=== PATIENT | female | born 1930 | race Caucasian/White ===

== ENCOUNTER 2016-03-12 14:40 | Inpatient (IN) | payer MEDICARE ==
[~2016-03-12] VITALS: Ht 170.2 cm; Wt 55.1 kg
[~2016-03-12 14:40] MED LIST: ACHD5005 PO; CHOL10007 PO; CPR500T PO; HYDR1CAP3; IBUP-15; LOSA50TA36 PO; [UNRECOGNIZED DRUG - CODE] OP; [UNRECOGNIZED DRUG - SUPPLY]
--- OUTSIDE RECORDS SUMMARY | 2016-03-12 14:46 | XMS REPORT | Continuity of Care Document ---
Author Author [facility] Organization [facility] Address Unknown Phone Unavailable Care Team Providers Care Technology Sales Consultant Name Role Phone ALECIA DE OLIVEIRA MD PCP Insurance Providers Payer Name Policy Number Subscriber Name Relationship [employer] Gold Choice [id number] Randy Solis 20 Self / Same As Patient Advance Directives Directive Response Recorded Date/Time Advance Directives No 09/22/13 12:28am Organ Donor Yes 09/22/13 12:28am Resuscitation Status Full Code 09/22/13 12:28am Resuscitation Status Full Code 09/21/13 11:01pm Chief Complaint and Reason for Visit Chief Complaint SMALL BOWEL OBSTRUCTION Reason for Visit Bowel obstruction Inguinal hernia Bowel obstruction Problems Medical Problems Problem Onset Date Status Bowel obstruction Unknown Active Inguinal hernia Unknown Active Bowel obstruction Unknown Active Medications Medication Dose Route Sig Days/Qty Instructions Order Date Discontinued Date Status Hydrocodone Bit/Acetaminophen 04/23/09 04/24/09 Discontinued Ibuprofen 04/24/09 09/21/13 Discontinued [Toilet/Stool Riser] 1 Qty 10/01/13 Active Ciprofloxacin 500 Mg PO TWICE A DAY 20 Qty 10/01/13 Active Acetaminophen/Hydrocodone Bitart 1-2 Tab PO EVERY 4HRS PRN PAIN 35 Qty 10/01/13 Active Social History Social History Problem Response Recorded Date/Time Alcohol Use Denies Use 09/22/2013 3:37am Recreational Drug Use No 09/22/2013 3:37am Smoking Status Former Smoker 09/22/2013 12:28am Do you dip or chew tobacco? No 09/22/2013 12:28am Query Response Start Date Stop Date Smoking Status Former Smoker Hospital Discharge Instructions No hospital discharge instructions. Plan of Care Discharge Date 10/01/13 3:11pm Disposition 30 STILL A PATIENT Instructions/Education Provided Soft Diet (GEN) Forms Provided Follow-Up Appts. PDI Surgical Prescriptions See Medications Section Referrals (Unspecified) Functional Status Query Response Date Recorded Patient Orientation Person Place Time Situation October 01, 2013 3:33pm Comprehension Ability Understands Concepts September 22, 2013 2:10am Allergies, Adverse Reactions, Alerts Allergen Type Severity Reaction Status Last Updated NKANo Known Allergies Allergy Mild Active 04/23/09 Immunizations Name Given Type Date of Pneumonia Vaccine 06/26/09 Historical Tetanus Booster (TDap) More than 5yrs Historical Vital Signs Acute Vital Signs Vital Response Date/Time Temperature (Fahrenheit) 98.2 degrees F (97.6 - 99.5) Temperature (Calculated Celsius) 36.53195 degrees C (36.4 - 37.5) Temperature Source Temporal Pulse Rate (adult) 80 bpm (60 - 90) Respiratory Rate 16 bpm (12 - 24) O2 Sat by Pulse Oximetry 96 % (88 - 100) Blood Pressure 125/76 mm Hg Pain Pain Intensity 4 Height (Feet) 5 feet Height (Inches) 7.00 inches Height (Calculated Centimeters) 170.446289 cm Weight (Pounds) 155 pounds Weight (Calculated Grams) 60826.818 gm Weight (Calculated Kilograms) 70.698362 kilograms Calculated BMI 24.27 Results Test Source Date Result Interp. Ref. Range Comments Alanine Aminotransferase (ALT/SGPT) September 21, 2013 5:20pm 8 U/L N 0-55 Albumin September 21, 2013 5:20pm 4.1 G/DL N 3.2-4.5 Alkaline Phosphatase September 21, 2013 5:20pm 91 U/L N 40-136 Amylase Level February 05, 2012 10:27pm 99 U/L N 25-115 Aspartate Amino Transf (AST/SGOT) September 21, 2013 5:20pm 21 U/L N 5-34 B-Type Natriuretic Peptide March 17, 2012 12:50pm 149.0 PG/ML H 5.0- 100.0 BUN/Creatinine Ratio September 23, 2013 5:40am 17 - Band Neutrophils September 23, 2013 5:40am 4 % - Basophils # (Auto) September 23, 2013 5:40am 0.0 10^3/uL N 0.0-0.1 Basophils % (Manual) September 23, 2013 5:40am 0 % - Basophils (%) (Auto) September 23, 2013 5:40am 0 % N 0-10 Blood Urea Nitrogen September 23, 2013 5:40am 13 MG/DL N 7-18 Calcium Level September 23, 2013 5:40am 9.0 MG/DL N 8.5-10.1 Carbon Dioxide Level September 23, 2013 5:40am 25 MMOL/L N 21-32 Chloride Level September 23, 2013 5:40am 108 MMOL/L H 98-107 Creatinine September 23, 2013 5:40am 0.77 MG/DL N 0.60-1.30 D-Dimer March 17, 2012 12:50pm 0.76 UG/ML H 0.00-0.49 Eosinophils # (Auto) September 23, 2013 5:40am 0.0 10^3/uL N 0.0-0.3 Eosinophils % (Manual) September 23, 2013 5:40am 0 % - Eosinophils (%) (Auto) September 23, 2013 5:40am 0 % N 0-10 Erythrocyte Sedimentation Rate March 17, 2012 12:50pm 10 MM/HR N 0-30 Folate December 01, 2009 8:07am 19.5 NG/ML - Glucose Level September 23, 2013 5:40am 112 MG/DL H 70-105 Hematocrit September 23, 2013 5:40am 39 % N 35-52 Hemoglobin September 23, 2013 5:40am 12.9 G/DL N 11.5-16.0 Hemoglobin A1c December 01, 2009 8:07am 5.8 % N 4.8-6.0 Lipase September 21, 2013 5:20pm 11 U/L N 8-78 Lymphocytes # (Auto) September 23, 2013 5:40am 1.1 X 10^3 N 1.0-4.0 Lymphocytes % (Manual) September 23, 2013 5:40am 7 % - Lymphocytes (%) (Auto) September 23, 2013 5:40am 11 % L 12-44 Magnesium Level April 28, 2009 6:30am 2.0 MG/DL N 1.8-2.4 Mean Corpuscular Hemoglobin September 23, 2013 5:40am 29 PG N 25-34 Mean Corpuscular Hemoglobin Concent September 23, 2013 5:40am 33 G/DL N 32- 36 Mean Corpuscular Volume September 23, 2013 5:40am 88 FL N 80-99 Mean Platelet Volume September 23, 2013 5:40am 10.3 FL N 7.4-10.4 Monocytes # (Auto) September 23, 2013 5:40am 0.7 X 10^3 N 0.0-1.0 Monocytes % (Manual) September 23, 2013 5:40am 7 % - Monocytes (%) (Auto) September 23, 2013 5:40am 8 % N 0-12 Myoglobin March 17, 2012 12:50pm 28 UG/L N 10-92 RUN OFF CMP DRAWN @ 1250 Neutrophils # (Auto) September 23, 2013 5:40am 7.8 X 10^3 N 1.8-7.8 Neutrophils % (Manual) September 23, 2013 5:40am 82 % - Neutrophils (%) (Auto) September 23, 2013 5:40am 81 % H 42-75 Platelet Count September 23, 2013 5:40am 193 10^3/uL N 130-400 Potassium Level September 23, 2013 5:40am 4.0 MMOL/L N 3.6-5.0 Prothrombin Time September 21, 2013 5:20pm 13.7 SEC N 12.2-14.7 Red Blood Count September 23, 2013 5:40am 4.41 10^6/uL N 4.35-5.85 Red Cell Distribution Width September 23, 2013 5:40am 13.4 % N 10.0-14.5 Sodium Level September 23, 2013 5:40am 140 MMOL/L N 135-145 Thyroid Stimulating Hormone (TSH) March 05, 2006 1:00pm 1.17 UIU/ML N 0.34-5.60 PT IN MAIN LAB Total Bilirubin September 21, 2013 5:20pm 0.6 MG/DL N 0.1-1.0 Total Creatine Kinase March 17, 2012 12:50pm 79 U/L N 1-159 RUN OFF CMP DRAWN @ 1250 Total Protein September 21, 2013 5:20pm 8.1 G/DL N 6.4-8.2 Troponin I March 17, 2012 12:50pm < 0.10 NG/ML 0.00-0.10 RUN OFF CMP DRAWN @ 1250 Urine Bacteria September 22, 2013 8:50am NEGATIVE /HPF - Has specimen been collected/obtained? YSpecimen Description CLEAN CATCH Urine Bilirubin September 22, 2013 8:50am NEGATIVE - Has specimen been collected/obtained? YSpecimen Description CLEAN CATCH Urine Casts September 22, 2013 8:50am NONE /LPF - Has specimen been collected/obtained? YSpecimen Description CLEAN CATCH Urine Clarity September 22, 2013 8:50am CLOUDY H - Has specimen been collected/obtained? YSpecimen Description CLEAN CATCH Urine Color September 22, 2013 8:50am YELLOW - Has specimen been collected /obtained? YSpecimen Description CLEAN CATCH Urine Crystals September 22, 2013 8:50am NONE /LPF - Has specimen been collected/obtained? YSpecimen Description CLEAN CATCH Urine Culture Indicated September 22, 2013 8:50am YES - Has specimen been collected/obtained? YSpecimen Description CLEAN CATCH Urine Glucose (UA) September 22, 2013 8:50am NEGATIVE - Has specimen been collected/obtained? YSpecimen Description CLEAN CATCH Urine Ketones September 22, 2013 8:50am NEGATIVE - Has specimen been collected/obtained? YSpecimen Description CLEAN CATCH Urine Leukocyte Esterase September 22, 2013 8:50am 3+ H - Has specimen been collected/obtained? YSpecimen Description CLEAN CATCH Urine Mucus September 22, 2013 8:50am NEGATIVE /LPF - Has specimen been collected/obtained? YSpecimen Description CLEAN CATCH Urine Nitrite September 22, 2013 8:50am NEGATIVE - Has specimen been collected/obtained? YSpecimen Description CLEAN CATCH Urine Protein September 22, 2013 8:50am 2+ H - Has specimen been collected/ obtained? YSpecimen Description CLEAN CATCH Urine RBC September 22, 2013 8:50am TNTC /HPF H - Has specimen been collected/obtained? YSpecimen Description CLEAN CATCH Urine Specific [place] September 22, 2013 8:50am 1.010 L - Has specimen been collected/obtained? YSpecimen Description CLEAN CATCH Urine Squamous Epithelial Cells September 22, 2013 8:50am 0-2 /HPF - Has specimen been collected/obtained? YSpecimen Description CLEAN CATCH Urine Urobilinogen September 22, 2013 8:50am NORMAL MG/DL - Has specimen been collected/obtained? YSpecimen Description CLEAN CATCH Urine WBC September 22, 2013 8:50am 5-10 /HPF H - Has specimen been collected/obtained? YSpecimen Description CLEAN CATCH Urine pH September 22, 2013 8:50am 6 - Has specimen been collected/ obtained? YSpecimen Description CLEAN CATCH Vitamin B12 Level December 01, 2009 8:07am 467 PG/ML - White Blood Count September 23, 2013 5:40am 9.7 10^3/uL N 4.3-11.0 Estimat Glomerular Filtration Rate September 23, 2013 5:40am > 60 - GFR INTERPRETIVE DATA UNITS FOR ESTIMATED GFR (eGFR): mL/min/1.73 M2 REFERENCE RANGE FOR ESTIMATED GFR (eGFR) eGFR NORMAL eGFR >60 MODERATELY DECREASED eGFR 30-59 SEVERLY DECREASED eGFR 15-29 KIDNEY FAILURE <15 (OR DIALYSIS) Blood Morphology Comment September 23, 2013 5:40am NORMAL - Urine RBC (Auto) September 22, 2013 8:50am 5+ H - Has specimen been collected/obtained? YSpecimen Description CLEAN CATCH INR Comment September 21, 2013 5:20pm 1.1 N 0.8-1.4 INTERPRETIVE DATASUGGESTED THERAPEUTIC RANGE FOR INR'S: VENOUS THROMBOSIS, PULMONARY EMBOLISM, OR PREVENTION OF SYSTEMIC EMBOLISM (EG. IN ATRIAL FIBRILLATION): 2.0 - 3.0 MECHANICAL PROSTHETIC HEART VALVES: 2.5 - 3.5* *NOTE: INR'S UP TO 4.5 MAY BE NECESSARY IN SELECTED GROUPS OF HIGH RISK PATIENTS. [employer] CONSENSUS CONFERENCE ON ANTITHROMBOTIC THERAPY (2000). Fungal Culture Tongue November 30, 2009 12:20pm Jennifer Parapsilosis Urine Culture Urine-Clean Catch September 22, 2013 8:50am NO GROWTH Procedures Procedure Status Date Provider(s) Laparoscopic repair of inguinal hernia completed 09/21/13 HUEY CHOUDHURY MD Tracing only of electrocardiogram completed 09/21/13 LISA ADAME APRN Color Doppler echocardiography completed 09/25/13 ALECIA DE OLIVEIRA MD Encounters Encounter Location Date/Time Discharged Inpatient [facility] 09/21/13 6:51pm Recent Diagnosis Bowel obstruction Inguinal hernia Bowel obstruction
[2016-03-12 14:56] LABS: BASOPHILS % (AUTO) 0 % (0-10); EOSINOPHILS % (AUTO) 0 % (0-10); LYMPHOCYTES # (AUTO) 0.4 X 10^3 (1.0-4.0); LYMPHOCYTES % (AUTO) 2 % (12-44); MEAN CORPUSCULAR HEMOGLOBIN 29 PG (25-34); MEAN CORPUSCULAR HGB CONC 33 G/DL (32-36); MEAN CORPUSCULAR VOLUME 87 FL (80-99); MEAN PLATELET VOLUME 10.2 FL (7.4-10.4); MONOCYTES # (AUTO) 0.7 X 10^3 (0.0-1.0); MONOCYTES % (AUTO) 4 % (0-12); NEUTROPHILS # (AUTO) 16.4 X 10^3 (1.8-7.8); NEUTROPHILS % (AUTO) 94 % (42-75); PLATELET COUNT 231 10^3/uL (130-400); RED BLOOD COUNT 4.16 10^6/uL (4.35-5.85); RED CELL DISTRIBUTION WIDTH 12.6 % (10.0-14.5); WHITE BLOOD COUNT 17.5 10^3/uL (4.3-11.0)
[2016-03-12 15:08] LABS: INR 1.2 (0.8-1.4); PROTHROMBIN TIME PATIENT 15.1 SEC (12.2-14.7)
[2016-03-12 15:17] LABS: ALANINE AMINOTRANSFERASE 32 U/L (0-55); ALBUMIN 3.8 G/DL (3.2-4.5); ANION GAP 9 MMOL/L (5-14); ASPARTATE AMINO TRANSFERASE 43 U/L (5-34); BILIRUBIN,TOTAL 0.5 MG/DL (0.1-1.0); BLOOD UREA NITROGEN 21 MG/DL (7-18); BUN/CREATININE RATIO 28; CALCIUM 9.7 MG/DL (8.5-10.1); CARBON DIOXIDE 19 MMOL/L (21-32); CHLORIDE 107 MMOL/L (98-107); CREATININE SERUM 0.76 MG/DL (0.60-1.30); GFR ESTIMATED > 60; GLUCOSE 170 MG/DL (70-105); POTASSIUM 4.2 MMOL/L (3.6-5.0); SODIUM 135 MMOL/L (135-145); TOTAL PROTEIN 7.1 G/DL (6.4-8.2)
[2016-03-12] MEDS ORDERED: ONDANSETRON 4 MG/2 ML (SDV) Z0FRAN IVP ONE ×2 (15:30→17:00)
[2016-03-12] MEDS ORDERED: morphine INJ 10 MG/ML 1ML (SYR OR VIAL) ONE (15:31)
--- NOTE | 2016-03-12 15:33 | Diagnostic Imaging Report ---
INDICATION: Fell on porch, left hand pain. FINDINGS: Three views of the left hand demonstrate no fracture or dislocation. Osteopenia is present. Moderate to severe degenerative changes are present in the second, third and fourth distal interphalangeal joints with subluxations of the second and third digits. IMPRESSION: There are degenerative changes of the left hand with osteopenia. No acute findings are seen. Dictated by: Dictated on workstation # [id number]
--- NOTE | 2016-03-12 15:33 | Diagnostic Imaging Report ---
INDICATION: Fell on porch, left hip pain. FINDINGS: An AP view of the pelvis demonstrates a comminuted intertrochanteric fracture of the left hip. Fractures of the left superior and inferior pubic rami are present. IMPRESSION: There is a comminuted intra-articular fracture of the left femur with fractures of the left superior and inferior pubic rami. Dictated by: Dictated on workstation # [id number]
--- NOTE | 2016-03-12 15:33 | Diagnostic Imaging Report ---
INDICATION: Fell outside on porch, hip fracture. FINDINGS: A frontal view of the chest demonstrates the heart size to be at the upper limits of normal with normal vascularity. The lungs are clear. No fractures are seen. There is calcification of the aorta. IMPRESSION: The heart size is at the upper limits of normal with no acute findings. Dictated by: Dictated on workstation # [id number]
--- NOTE | 2016-03-12 15:40 | Diagnostic Imaging Report ---
PROCEDURE: CT head and CT cervical spine without contrast. TECHNIQUE: Multiple contiguous axial images were obtained through the brain and cervical spine without the use of intravenous contrast. Sagittal and coronal reformations through the cervical spine were then performed. INDICATION: Fall. FINDINGS: CT head: There is no intracranial hemorrhage, edema or mass effect. The brain parenchyma and ugarte-white matter differentiation is preserved. There are periventricular and deep white matter hypodensities compatible with chronic microvascular ischemic changes. No hydrocephalus. No extra-axial fluid collection is seen. The calvarium, the paranasal sinuses and orbits visualized portions appear grossly unremarkable. CT cervical spine: There is mild anterior translation of C4 over C5 and of C5 over C6. The anterior arch of C1 appears to be fused with the dens. There are preserved vertebral body heights. There is moderate disc height loss at C4/C5 and C5/C6 levels. The anterior masses of C1 and C2 appear well aligned. There is normal alignment at the atlanto-occipital joints bilaterally. The facet joints demonstrate satisfactory alignment. There is osseous fusion involving C2/C3 facet joints bilaterally and C6/C7 and C7/T1 facet joints are fused on both sides. Prominent facet arthropathy is seen at all levels. No fracture seen. IMPRESSION: 1. CT head: No intracranial hemorrhage. White matter chronic ischemic changes seen. 2. 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 The anterior arch of C1 is also fused with the dens. No acute fracture is identified. Alignment abnormalities described are likely secondary to degenerative changes. Dictated by: Dictated on workstation # [id number]
[2016-03-12] MEDS ORDERED: morphine INJ 10 MG/ML 1ML (SYR OR VIAL) IVP ONE ×2 (15:45→16:15)
--- NOTE | 2016-03-12 15:46 | Diagnostic Imaging Report ---
Frontal and lateral views of the left femur. INDICATION: Fall. FINDINGS: There is a mildly displaced intertrochanteric fracture. There is slight impaction of the bone fragments and superior displacement resulting in lateral flexion at the hip joint. There is no primary joint injury-related abnormality. There are mild degenerative changes in the left hip. IMPRESSION: Slightly displaced and impacted left intertrochanteric fracture. Dictated by: Dictated on workstation # [id number]
--- NOTE | 2016-03-12 16:06 | ED Hip Pain/Injury ---
General Chief Complaint: Hip/Pelvic Problems Stated Complaint: L HIP PAIN, FALL Nursing Triage Note: L HIP, L HAND PAIN S/P FALL WHILE SWEEPING Source: patient, family, EMS Exam Limitations: no limitations History of Present Illness Time seen by provider: 14:41 Initial Comments This pleasant 85-year-old woman presents to the emergency room via EMS from home where she fell while sweeping leaves off the porch. She is uncertain if she injured her head but does have significant pain in the left hip and thigh. There was no loss of consciousness. She also has a large area of swelling and ecchymosis on the left hand. She denies any blood thinning medications other than a baby aspirin daily. She has a relatively unremarkable health history. She is alert and oriented on arrival. She has not required any pain medications at this time. There is obvious deformity below the left hip. Sensation and pedal pulses are intact distally. Allergies and Home Medications Allergies Coded Allergies: NKANo Known Allergies (Unverified Allergy, Mild, 04/23/09) fentanyl (Verified Adverse Reaction, Mild, 03/12/16) Agitation Home Medications Cholecalciferol (Vitamin D3) 1,000 Unit Capsule 1,000 UNIT PO DAILY (Reported) Tetrahydrozoline HCl 15 Ml Drops 15 ML OP (Reported) Constitutional: no symptoms reported EENTM: no symptoms reported Respiratory: no symptoms reported Cardiovascular: no symptoms reported Gastrointestinal: no symptoms reported Genitourinary: no symptoms reported : No Musculoskeletal: see HPI Skin: see HPI Psychiatric/Neurological: No Symptoms Reported Past Hfjzbyb-Ljaqyf-Ehvfmj Hx Patient Social History Alcohol Use: Denies Use Recreational Drug Use: No Smoking Status: Never a Smoker Recent Foreign Travel: No Contact w/Someone Who Travel: No Recent Infectious Disease Expo: No Recent Hopitalizations: Yes (BOWEL SURGERY) Physical Abuse Screen: No Sexual Abuse: No Immunizations Up To Date Tetanus Booster (TDap): More than 5yrs Date of Pneumonia Vaccine: June 26, 2009 Seasonal Allergies Seasonal Allergies: No Surgeries HX Surgeries: Yes (hernia repair) Surgeries: Abdominal, Bowel Surgery Respiratory Hx Respiratory Disorders: No Cardiovascular Hx Cardiac Disorders: No Neurological Hx Neurological Disorders: Yes Neurological Disorders: TIA Reproductive System Hx Reproductive Disorders: No Genitourinary Hx Genitourinary Disorders: No Gastrointestinal Hx Gastrointestinal Disorders: Yes Gastrointestinal Disorders: Abdominal Hernia, Obstructive Bowel Musculoskeletal Hx Musculoskeletal Disorders: Yes Musculoskeletal Disorders: Arthritis, Chronic Back Pain Endocrine Hx Endocrine Disorders: No HEENT HX ENT Disorders: No Cancer Hx Cancer: No Psychosocial Hx Psychiatric Problems: No Integumentary HX Skin/Integumentary Disorder: No Blood Transfusions Hx Blood Disorders: No Family Medical History Significant Family History: No Pertinent Family Hx Family Medial History: Cancer 19 MOTHER (breast) Family history: Arthritis G8 SISTER Family history: Breast disease 19 MOTHER Hearing loss Myocardial infarction 19 FATHER Physical Exam Vital Signs Vital Sign - Last 12Hours 03/12/16 14:42 Temp 97.6 Pulse 83 Resp 18 B/P 175/80 Pulse Ox 98 Capillary Refill : Less Than 3 Seconds General Appearance: No Apparent Distress WD/WN HEENT: PERRL/EOMI TMs Normal Normal ENT Inspection Pharynx Normal Neck: Full Range of Motion Normal Inspection Non Tender Supple Cardiovascular: Regular Rate, Rhythm No Edema No Murmur Normal Peripheral Pulses Respiratory: Lungs Clear Normal Breath Sounds No Accessory Muscle Use No Respiratory Distress Gastrointestinal: Non Tender Soft Extremity: Other (tenderness to palpation of the proximal left thigh. There is mild deformity in this location. 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1 MG/DL Carbon Dioxide Level 19 L 21-32 MMOL/L Chloride Level 107 98-107 MMOL/L Creatinine 0.76 0.60-1.30 MG/DL Eosinophils # (Auto) 0.0 0.0-0.3 10^3/uL Eosinophils % (Manual) 0 % Eosinophils (%) (Auto) 0 0-10 % Estimat Glomerular Filtration Rate > 60 Glucose Level 170 H 70-105 MG/DL Hematocrit 36 35-52 % Hemoglobin 12.0 11.5-16.0 G/DL INR Comment 1.2 0.8-1.4 Lymphocytes # (Auto) 0.4 L 1.0-4.0 X 10^3 Lymphocytes % (Manual) 3 % Lymphocytes (%) (Auto) 2 L 12-44 % Mean Corpuscular Hemoglobin 29 25-34 PG Mean Corpuscular Hemoglobin Concent 33 32-36 G/DL Mean Corpuscular Volume 87 80-99 FL Mean Platelet Volume 10.2 7.4-10.4 FL Monocytes # (Auto) 0.7 0.0-1.0 X 10^3 Monocytes % (Manual) 0 % Monocytes (%) (Auto) 4 0-12 % Neutrophils # (Auto) 16.4 H 1.8-7.8 X 10^3 Neutrophils % (Manual) 94 % Neutrophils (%) (Auto) 94 H 42-75 % Platelet Count 231 130-400 10^3/uL Poikilocytosis SLIGHT Potassium Level 4.2 3.6-5.0 MMOL/L Prothrombin Time 15.1 H 12.2-14.7 SEC Red Blood Count 4.16 L 4.35-5.85 10^6/uL Red Cell Distribution Width 12.6 10.0-14.5 % Sodium Level 135 135-145 MMOL/L Total Bilirubin 0.5 0.1-1.0 MG/DL Total Protein 7.1 6.4-8.2 G/DL White Blood Count 17.5 H 4.3-11.0 10^3/uL My Orders Orders-MANOHAR FARIAS MD Cbc With Automated Diff (03/12/16 14:49) Comprehensive Metabolic Panel (03/12/16 14:49) Protime With Inr (03/12/16 14:49) Partial Thromboplastin Time (03/12/16 14:49) Ua Culture If Indicated (03/12/16 14:49) Saline Lock/Iv-Start (03/12/16 14:49) Chest 1 View, Ap/Pa Only (03/12/16 14:49) Femur, Left, 2 Views (03/12/16 14:49) Pelvis (03/12/16 14:49) Manual Differential (03/12/16 14:46) Ct Head/Cervical Spine Wo (03/12/16 14:59) Hand, Left, 3 Views (03/12/16 15:01) Ondansetron Injection (Zofran Injectio (03/12/16 15:30) Morphine Injection (Morphine Injection (03/12/16 15:45) Morphine Injection (Morphine Injection (03/12/16 15:31) Ekg Tracing (03/12/16 16:01) Morphine Injection (Morphine Injection (03/12/16 16:15) Tramadol Tablet (Ultram Tablet) (03/12/16 16:15) Ondansetron Injection (Zofran Injectio (03/12/16 17:00) Medications Given in ED Current Medications Medications Dose Ordered Sig/Gustavo Route Start Time Stop Time Status Last Admin Dose Admin Morphine Sulfate 1 mg ONCE ONCE IVP 03/12/16 15:45 03/12/16 15:46 DC 03/12/16 15:42 1 MG Morphine Sulfate 1 mg ONCE ONCE IVP 03/12/16 16:15 03/12/16 16:16 DC 03/12/16 16:28 1 MG Ondansetron HCl 4 mg ONCE ONCE IVP 03/12/16 15:30 03/12/16 15:31 DC 03/12/16 15:39 4 MG Tramadol HCl 50 mg ONCE ONCE PO 03/12/16 16:15 03/12/16 16:16 DC 03/12/16 16:28 50 MG Vital Signs/I&O Vital Sign - Last 12Hours 03/12/16 14:42 Temp 97.6 Pulse 83 Resp 18 B/P 175/80 Pulse Ox 98 Blood Pressure Mean: 111 Progress Note : Progress Note Patient was given a total of 2 mg of morphine for pain. Allergy profile was discussed with pharmacy, Dr. Chamberlain's office, and patient's family due to questions of narcotic allergies. Patient has some adverse reactions to narcotics, especially fentanyl, which sometimes cause mental status changes. There is no known true allergy to narcotics. Patient was also given Zofran for nausea. Case was discussed with Dr. Schroeder who tentatively plans to do surgery tomorrow. Dr. Chamberlain was consulted for primary care. ECG Initial ECG Impression Date: Mar 12, 2016 Initial ECG Impression Time: 16:19 Initial ECG Rhythm: Normal Sinus Comment Sinus rhythm with no ST elevation or depression. Incomplete right bundle branch block by automated read. Left ventricular hypertrophy by automated read. Diagnostic Imaging Diagonstic Imaging: Xray Plain Films/CT/US/NM/MRI: other (left femur) Comments Left femur x-ray viewed by me and report reviewed. See report below: NAME: RANDY LEE [facility] REC#: [id number] PT STATUS: REG ER : 1932 PHYSICIAN: MANOHAR FARIAS MD ADMIT DATE: 03/12/16/ER Signed Date of Exam:03/12/16 FEMUR, LEFT, 2 VIEWS Frontal and lateral views of the left femur. INDICATION: Fall. FINDINGS: There is a mildly displaced intertrochanteric fracture. There is slight impaction of the bone fragments and superior displacement resulting in lateral flexion at the hip joint. There is no primary joint injury-related abnormality. There are mild degenerative changes in the left hip. IMPRESSION: Slightly displaced and impacted left intertrochanteric fracture. Dictated by: Dictated on workstation # [id number] Dict: 03/12/16 1534 Trans: 03/12/16 1550 [id number] Interpreted by: MELANY ESPINO MD Electronically signed by: MELANY ESPINO MD 03/12/16 1553 Diagonstic Imaging: Xray Plain Films/CT/US/NM/MRI: hand Comments X-ray left hand viewed by me and report reviewed. See report below: NAME: RANDY LEE [facility] REC#: [id number] PT STATUS: REG ER : 1932 PHYSICIAN: MANOHAR FARIAS MD ADMIT DATE: 03/12/16/ER Signed Date of Exam:03/12/16 HAND, LEFT, 3 VIEWS INDICATION: Fell on porch, left hand pain. FINDINGS: Three views of the left hand demonstrate no fracture or dislocation. Osteopenia is present. Moderate to severe degenerative changes are present in the second, third and fourth distal interphalangeal joints with subluxations of the second and third digits. IMPRESSION: There are degenerative changes of the left hand with osteopenia. No acute findings are seen. Dictated by: Dictated on workstation # [id number] Dict: 03/12/16 1529 Trans: 03/12/16 1624 [facility] [id number] Interpreted by: DELANO CASH MD Electronically signed by: DELANO CASH MD 03/12/16 1626 Diagonstic Imaging: CT Plain Films/CT/US/NM/MRI: c-spine, head Comments CT head and cervical spine viewed by me and report reviewed. See report below: NAME: RANDY LEE [facility] REC#: [id number] PT STATUS: REG ER : 1932 PHYSICIAN: MANOHAR FARIAS MD ADMIT DATE: 03/12/16/ER Signed Date of Exam:03/12/16 CT HEAD/CERVICAL SPINE WO PROCEDURE: CT head and CT cervical spine without contrast. TECHNIQUE: Multiple contiguous axial images were obtained through the brain and cervical spine without the use of intravenous contrast. Sagittal and coronal reformations through the cervical spine were then performed. INDICATION: Fall. FINDINGS: CT head: There is no intracranial hemorrhage, edema or mass effect. The brain parenchyma and ugarte-white matter differentiation is preserved. There are periventricular and deep white matter hypodensities compatible with chronic microvascular ischemic changes. No hydrocephalus. No extra-axial fluid collection is seen. The calvarium, the paranasal sinuses and orbits visualized portions appear grossly unremarkable. CT cervical spine: There is mild anterior translation of C4 over C5 and of C5 over C6. The anterior arch of C1 appears to be fused with the dens. There are preserved vertebral body heights. There is moderate disc height loss at C4/C5 and C5/C6 levels. The anterior masses of C1 and C2 appear well aligned. There is normal alignment at the atlanto-occipital joints bilaterally. The facet joints demonstrate satisfactory alignment. There is osseous fusion involving C2/C3 facet joints bilaterally and C6/C7 and C7/T1 facet joints are fused on both sides. Prominent facet arthropathy is seen at all levels. No fracture seen. IMPRESSION: 1. CT head: No intracranial hemorrhage. White matter chronic ischemic changes seen. 2. 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 The anterior arch of C1 is also fused with the dens. No acute fracture is identified. Alignment abnormalities described are likely secondary to degenerative changes. Dictated by: Dictated on workstation # [id number] Dict: 03/12/16 1526 Trans: 03/12/16 1551 [facility] [id number] Interpreted by: MELANY ESPINO MD Electronically signed by: MELANY ESPINO MD 03/12/16 1554 Diagonstic Imaging: Xray Plain Films/CT/US/NM/MRI: chest Comments Chest x-ray viewed by me and report reviewed. See report below: NAME: RANDY LEE [facility] REC#: [id number] PT STATUS: REG ER : 1930 PHYSICIAN: MANOHAR FARIAS MD ADMIT DATE: 03/12/16/ER Signed Date of Exam:03/12/16 CHEST 1 VIEW, AP/PA ONLY INDICATION: Fell outside on porch, hip fracture. FINDINGS: A frontal view of the chest demonstrates the heart size to be at the upper limits of normal with normal vascularity. The lungs are clear. No fractures are seen. There is calcification of the aorta. IMPRESSION: The heart size is at the upper limits of normal with no acute findings. Dictated by: Dictated on workstation # [id number] Dict: 03/12/16 1528 Trans: 03/12/16 1624 [id number] Interpreted by: DELANO CASH MD Electronically signed by: DELANO CASH MD 03/12/16 1626 Diagonstic Imaging: Xray Plain Films/CT/US/NM/MRI: pelvis Comments Pelvis x-ray viewed by me and report reviewed. See report below: NAME: RANDY LEE [facility] REC#: [id number] PT STATUS: REG ER : 1930 PHYSICIAN: MANOHAR FARIAS MD ADMIT DATE: 03/12/16/ER Signed Date of Exam:03/12/16 PELVIS INDICATION: Fell on porch, left hip pain. FINDINGS: An AP view of the pelvis demonstrates a comminuted intertrochanteric fracture of the left hip. Fractures of the left superior and inferior pubic rami are present. IMPRESSION: There is a comminuted intra-articular fracture of the left femur with fractures of the left superior and inferior pubic rami. Dictated by: Dictated on workstation # [id number] Dict: 03/12/16 1530 Trans: 03/12/16 1624 [id number] Interpreted by: DELANO CASH MD Electronically signed by: DELANO CASH MD 03/12/16 1626 Departure Communication Time/Spoke to Admitting Phy: 15:[address] Schroeder Time/Spoke to Consulting Physi: 15:55 Communication/Consulting Dr. Chamberlain Impression Impression: Primary Impression: Closed intertrochanteric fracture of left hip Qualified Code: S72.142A - Displaced intertrochanteric fracture of left femur , initial encounter for closed fracture Additional Impressions: Fall on same level Qualified Code: W18.30XA - Fall on same level, unspecified, initial encounter Fracture of pelvis Qualified Code: S32.82XA - Multiple fractures of pelvis without disruption of pelvic ring, initial encounter for closed fracture Disposition: ADMITTED INPATIENT Condition: Improved Decision to Admit Reason: Admit from ER (Trauma) Decision to Admit/Date: Mar 12, 2016 Time/Decision to Admit Time: 15:40 Departure-Patient Inst. Referrals: MITCHELL CHAMBERLAIN MD (PCP/Family) Primary Care Physician MANOHAR FARIAS MD Mar 12, 2016 16:06
[2016-03-12 16:14] LABS: BAND NEUTROPHILS 3 %; BASOPHILS % (MANUAL) 0 %; EOSINOPHILS % (MANUAL) 0 %; LYMPHOCYTES % (MANUAL) 3 %; NEUTROPHILS % (MANUAL) 94 %; POIKILOCYTOSIS SLIGHT
[2016-03-12 17:40] VITALS: BP 179/89
[2016-03-12] MEDS ORDERED: NS IV 1000 ML 1,000 ML ONE (17:58)
[2016-03-12] MEDS ORDERED: fentaNYL INJECTION 100 MCG/2 ML AMP IVP PRN (18:15)
[2016-03-12] MEDS ORDERED: CATHETER FLUSH 10 ML SYR IV PRN (18:15)
[2016-03-12] MEDS: ONDANSETRON 4 MG/2 ML (SDV) Z0FRAN IV PRN (18:22)
[2016-03-12] MEDS ORDERED: morphine INJ 4 MG/ML 1 ML (VIAL/SYRINGE) IV PRN (18:30)
[2016-03-12] MEDS: NS IV 1000 ML 1,000 ML IV SCH (18:39)
[2016-03-12] MEDS ORDERED: CYCLOBENZAPRINE 10 MG (FLEXERIL) TAB PO PRN (18:45)
[2016-03-12] MEDS ORDERED: CYCLOBENZAPRINE 10 MG (FLEXERIL) TAB PO SCH (18:45)
[2016-03-12 18:49] LABS: BILIRUBIN,URINE NEGATIVE (NEGATIVE); KETONES,URINE 2+ (NEGATIVE); LEUKOCYTE ESTERASE ,URINE NEGATIVE (NEGATIVE); NITRITE,URINE NEGATIVE (NEGATIVE); PH,URINE 6 (5-9); PROTEIN,URINE 2+ (NEGATIVE); UROBILINOGEN,URINE NORMAL (NORMAL)
[2016-03-12 18:57] LABS: WBC,URINE RARE /HPF
[2016-03-12 19:20] VITALS: BP 167/75
--- NOTE | 2016-03-12 22:26 | History & Physicial ---
History of Present Illness History of Present Illness Reason for visit/HPI Fall 85 y/o white female fell earlier today injuring her left hip. She is awake, alert, mildly confused. Denies any other complaints of pain. Denies LOC. Date of Admission Mar 12, 2016 at 4:47 pm I consulted on this patient on 03/12/16 22:22 Attending Physician Jie Schroeder MD Admitting Physician Josselyn Chamberlain MD Consult Allergies and Home Medications Allergies Coded Allergies: NKANo Known Allergies (Unverified Allergy, Mild, 04/23/09) Home Medications Cholecalciferol (Vitamin D3) 1,000 Unit Capsule 1,000 UNIT PO DAILY (Reported) Tetrahydrozoline HCl 15 Ml Drops 15 ML OP (Reported) Past Joackmz-Cwiafa-Ecvrxy Hx Patient Social History Alcohol Use: Denies Use Recreational Drug Use: No Smoking Status: Never a Smoker Physical Abuse Screen: No Sexual Abuse: No Recent Foreign Travel: No Contact w/other who traveled: No Recent Hopitalizations: Yes (BOWEL SURGERY) Recent Infectious Disease Expo: No Immunizations Up To Date Tetanus Booster (TDap): More than 5yrs Date of Pneumonia Vaccine: June 26, 2009 Seasonal Allergies Seasonal Allergies: No Surgeries HX Surgeries: Yes (hernia repair) Surgeries: Abdominal, Bowel Surgery Respiratory Hx Respiratory Disorders: No Cardiovascular Hx Cardiovascular Disorders: No Neurological Hx Neurological Disorders: Yes Neurological Disorders: TIA Reproductive System Hx Reproductive Disorders: No Genitourinary Hx Genitourinary Disorders: No Gastrointestinal Hx Gastrointestinal Disorders: Yes Gastrointestinal Disorders: Abdominal Hernia, Obstructive Bowel Musculoskeletal Hx Musculoskeletal Disorders: Yes Musculoskeletal Disorders: Arthritis, Chronic Back Pain Endocrine Hx Endocrine Disorders: No HEENT HX ENT Disorders: No Cancer Hx Cancer: No Psychosocial Hx Psychiatric Problems: No Integumentary HX Skin/Integumentary Disorder: No Blood Transfusions Hx Blood Disorders: No Family Medical History Significant Family History: No Pertinent Family Hx Family Hx: Cancer 19 MOTHER (breast) Family history: Arthritis G8 SISTER Family history: Breast disease 19 MOTHER Hearing loss Myocardial infarction 19 FATHER Constitutional: no symptoms reported EENTM: no symptoms reported Respiratory: no symptoms reported Cardiovascular: no symptoms reported Gastrointestinal: no symptoms reported Genitourinary: no symptoms reported Musculoskeletal: joint pain joint swelling Skin: other (Bruise left hand) Psychiatric/Neurological: No Symptoms Reported Physical Exam Vital Signs Vital Sign - Last 12Hours 03/12/16 03/12/16 14:42 17:40 Temp 97.6 Pulse 83 Resp 18 B/P 175/80 Pulse Ox 98 O2 Delivery Room Air Capillary Refill : Less Than 3 SecondsLess Than 3 Seconds General Appearance: No Apparent Distress Neck: Full Range of Motion Non Tender Respiratory: No Accessory Muscle Use No Respiratory Distress Cardiovascular: Regular Rate, Rhythm Gastrointestinal: Soft Rectal: Deferred Back: No CVA Tenderness No Vertebral Tenderness Extremity: Normal Capillary Refill Other (left leg, shortened and externally rotated) Neurologic/Psychiatric: Alert No Motor/Sensory Deficits Normal Mood/Affect Lymphatic: No Adenopathy Comments xrays pelvis and left femur show a displaced intertroch hip fracture CT cervical spine , DDD, auto fusion, but no fracture Hand xrays, show DJD but no apparent fracture Assessment/Plan Assessment and Plan Left Closed Intertrochanteric hip fracture Fall Dementia Plan: Left hip IM Nailing, discussed with patient and her daughter, agree to proceed, likely under spinal if possible. Clinical Quality Measures DVT/VTE Risk/Contraindication: Risk Factor Score Per Nursin RFS Level Per Nursing on Admit: 4+=Very High JIE SCHROEDER MD Mar 12, 2016 10:26 pm
[2016-03-13] VITALS (7 sets, daily range): BP systolic 119–193; BP diastolic 63–85
[2016-03-13] MEDS: fentaNYL INJECTION 100 MCG/2 ML AMP IVP PRN ×3 (00:56→15:50)
[2016-03-13 04:42] LABS: MEAN PLATELET VOLUME 10.3 FL (7.4-10.4); RED BLOOD COUNT 3.45 10^6/uL (4.35-5.85); RED CELL DISTRIBUTION WIDTH 12.7 % (10.0-14.5); WHITE BLOOD COUNT 9.2 10^3/uL (4.3-11.0)
[2016-03-13 05:12] LABS: ALANINE AMINOTRANSFERASE 24 U/L (0-55); ALBUMIN 3.4 G/DL (3.2-4.5); ANION GAP 9 MMOL/L (5-14); ASPARTATE AMINO TRANSFERASE 27 U/L (5-34); BILIRUBIN,TOTAL 0.5 MG/DL (0.1-1.0); BLOOD UREA NITROGEN 21 MG/DL (7-18); BUN/CREATININE RATIO 29; CALCIUM 8.9 MG/DL (8.5-10.1); CARBON DIOXIDE 19 MMOL/L (21-32); CHLORIDE 107 MMOL/L (98-107); CREATININE SERUM 0.72 MG/DL (0.60-1.30); GFR ESTIMATED > 60; GLUCOSE 117 MG/DL (70-105); POTASSIUM 4.4 MMOL/L (3.6-5.0); SODIUM 135 MMOL/L (135-145); TOTAL PROTEIN 5.9 G/DL (6.4-8.2)
[2016-03-13] MEDS: NS IV 1000 ML 1,000 ML IV SCH ×2 (06:31→20:55)
[2016-03-13] MEDS ORDERED: FLU TRIvalent (5 YOA+) 2016-17 (AFLURIA) 0.5 ML IM ONE (07:30)
--- NOTE | 2016-03-13 08:50 | Consultation ---
History of Present Illness History of Present Illness Patient Consulted On(scarlet/time) 03/13/16 08:46 Date of Admission 03/12/16 Reason for Visit: HIP FRACTURE History of Present Illness PT IS AN 85 Y/O FEMALE WHO IS KNOWN TO ME FROM CLINIC. THE PATIENT PRESENTED TO THE HOSPITAL AFTER FALLING AT HOME WHILE SWEEPING BY HER DOOR. SHE DOES NOT REMEMBER FEELING OFF BALANCE, AND DOES NOT REMEMBER THE DETAILS OF THE FALL. SHE HAD IMMEDIATE PAIN IN HER LEFT HIP AND GLUTEAL REGION, WAS TRANSPORTED TO THE EMERGENCY DEPARTMENT WHERE SHE WAS FOUND TO HAVE A LEFT INTRAARTICULAR HIP FRACTURE AND FRACTURE OF INFERIOR AND SUPERIOR RAMI. DR. ANGUIANO ADMITTED THE PATIENT TO THE HOSPITAL AND PLANS ON SURGICAL FIXATION TODAY AROUND 1PM. THE PATIENT REPORTS THAT ON DISCHARGE SHE WOULD LIKE TO GO TO [facility] FOR RECOVERY. Allergies and Home Medications Allergies Coded Allergies: MATIANo Known Allergies (Unverified Allergy, Mild, 04/23/09) Home Medications Cholecalciferol (Vitamin D3) 1,000 Unit Capsule 1,000 UNIT PO DAILY (Reported) Tetrahydrozoline HCl 15 Ml Drops 15 ML OP (Reported) Past Gxtyufi-Xtzgie-Isvlbg Hx Patient Social History Alcohol Use: Denies Use Recreational Drug Use: No Smoking Status: Never a Smoker 2nd Hand Smoke Exposure: No Recent Foreign Travel: No Contact w/Someone Who Travel: No Recent Infectious Disease Expo: No Recent Hopitalizations: Yes (BOWEL SURGERY) Physical Abuse Screen: No Sexual Abuse: No Immunizations Up To Date Tetanus Booster (TDap): More than 5yrs Date of Pneumonia Vaccine: June 26, 2009 Seasonal Allergies Seasonal Allergies: No Surgeries HX Surgeries: Yes (hernia repair) Surgeries: Abdominal, Bowel Surgery Respiratory Hx Respiratory Disorders: No Cardiovascular Hx Cardiac Disorders: No Neurological Hx Neurological Disorders: Yes Neurological Disorders: TIA Reproductive System Hx Reproductive Disorders: No Genitourinary Hx Genitourinary Disorders: No Gastrointestinal Hx Gastrointestinal Disorders: Yes Gastrointestinal Disorders: Abdominal Hernia, Obstructive Bowel Musculoskeletal Hx Musculoskeletal Disorders: Yes Musculoskeletal Disorders: Arthritis, Chronic Back Pain Endocrine Hx Endocrine Disorders: No HEENT HX ENT Disorders: No Cancer Hx Cancer: No Psychosocial Hx Psychiatric Problems: No Integumentary HX Skin/Integumentary Disorder: No Blood Transfusions Hx Blood Disorders: No Reviewed Nursing Assessment Reviewed/Agree w Nursing PMH: Yes Family Medical History Significant Family History: Heart Disease, Cancer Family Medial History: Cancer 19 MOTHER (breast) Family history: Arthritis G8 SISTER Family history: Breast disease 19 MOTHER Hearing loss Myocardial infarction 19 FATHER Review of Systems-General Constitutional: No chills, No fever, No malaise, weakness EENTM: No mouth pain, No throat pain Respiratory: No cough, No dyspnea on exertion, No short of breath Cardiovascular: No chest pain, No edema, No palpitations Gastrointestinal: No abdominal pain, No constipation, No diarrhea, other ( HERNIA OF ABDOMEN NEAR SURGICAL SCAR MIDLINE) Genitourinary: other (GONZALEZ IN PLACE) Musculoskeletal: back pain other (PAIN IN LEFT HIP AND LEFT HAND) Skin: other (BRUISING LEFT HAND) Psychiatric/Neurological: Denies Anxiety, Denies Depressed, Weakness All Other Systems Reviewed Negative Unless Noted: Yes Physical Exam-General Problems Physical Exam Vital Signs Vital Sign - Last 12Hours 03/12/16 03/12/16 14:42 17:40 Temp 97.6 Pulse 83 Resp 18 B/P 175/80 Pulse Ox 98 O2 Delivery Room Air Capillary Refill : Less Than 3 SecondsLess Than 3 Seconds General Appearance: no apparent distress thin Eyes: Bilateral Eye EOMI, Bilateral Eye Normal Inspection, Bilateral Eye PERRL HEENT: PERRL/EOMI pharynx normal Neck: non-tender normal inspection Respiratory: chest non-tender lungs clear normal breath sounds no respiratory distress no accessory muscle use Cardiovascular: regular rate, rhythm Gastrointestinal: normal bowel sounds non tender soft no organomegaly no pulsatile mass other (HERNIA TO RIGHT OF UMBILICUS - ABOUT 3 X 3CM) Rectal: deferred Back: other Extremities: other (BRUISING LEFT DORSUM OF HAND, PT ABLE TO MOVE ALL FINGERS , LEFT HIP TTP, NO BRUISING NOTED) Neurologic/Psychiatric: alert normal mood/affect oriented x 3 Skin: ecchymosis (LEFT HAND) Lymphatic: no adenopathy Assessment/Plan Assessment/Plan Admission Diagnosis/Plan COMMINUTED INTRA-ARTICULAR FRACTURE OF LEFT FEMUR FRACTURE OF LEFT SUPERIOR PUBIC RAMI FRACTURE OF LEFT INFERIOR PUBIC RAMI PAIN FROM FRACTURE VENTRAL HERNIA PT TO HAVE SURGERY TODAY - PLAN FOR 1PM. DISCUSSED WITH PT AND HER DAUGHTER - AND I HAVE ALSO DISCUSSED WITH ANESTHESIA - IF THERE ARE NO PHYSICAL BARRIERS TO OPAL HAVING SPINAL ANESTHESIA - THEY WILL PLAN ON A SPINAL TODAY FOR HER SURGERY. I HAVE DISCUSSED WITH FACILITIES MAINTENANCE ENGINEER - THEY WILL BE CONTACTING [facility] IN [place] FOR PT TO HAVE POST-SURGICAL THERAPIES AT THAT FACILITY TO BE CLOSER TO HER FAMILY. VENTRAL HERNIA - NO SURGICAL INTERVENTION NEEDED AT THIS TIME. ELEVATED WHITE COUNT ON ADMISSION - NOW NORMAL. Clinical Quality Measures DVT/VTE Risk/Contraindication: Risk Factor Score Per Nursin RFS Level Per Nursing on Admit: 4+=Very High MITCHELL JOSE MD Mar 13, 2016 08:50
[2016-03-13] MEDS ORDERED: LATA2.5D5 OU (11:13)
[2016-03-13] MEDS ORDERED: GENTAMICIN 40 MG/ML 2 ML INJ SDV ONE (11:29)
[2016-03-13] MEDS ORDERED: fentaNYL INJECTION 100 MCG/2 ML AMP ONE (11:49)
[2016-03-13] MEDS ORDERED: LACTATED RINGERS 1,000 ML IV PRN (12:26)
[2016-03-13] MEDS ORDERED: proPOfol 200 MG/20 ML (DIPRIVAN) VIAL IV ONE (12:42)
[2016-03-13] MEDS ORDERED: MIDAZOLAM 2 MG/2 ML (VERSED) VIAL ONE (12:43)
[2016-03-13] MEDS ORDERED: BUPIVACAINE 0.25% 30 ML (SENSORCAINE) VIAL ONE (12:46)
[2016-03-13] MEDS ORDERED: KETAMINE HCL 100 MG/ML 5 ML VIAL ONE (12:47)
[2016-03-13] MEDS: ceFAZolin INJECTION 2,000 MG in NS (IVPB) 50 ML IV SCH (13:33)
[2016-03-13] MEDS ORDERED: ceFAZolin 1,000 MG (ANCEF) VIAL ONE (13:36)
[2016-03-13] MEDS ORDERED: ceFAZolin 1,000 MG (ANCEF) VIAL IVP SCH (14:00)
--- NOTE | 2016-03-13 14:33 | Progress Note-Post Operative ---
Post-Operative Progess Note Boat Deckhand Marcell Jordan, ALEXANDRA Pre-Operative Diagnosis Left Closed Inter-Troch Hip fracture Post-Operative Diagnosis Same Post-Op Procedure Note Date of Procedure: Mar 13, 2016 Name of Procedure: Left TFN Procedure Note/Findings Fx Anesthesia Type Spinal Estimated blood loss (mL): 250 JIE ANGUIANO MD Mar 13, 2016 2:32 pm
[2016-03-13] MEDS ORDERED: ceFAZolin 2 GM IV (SDC ONLY) 50 ML IV SCH (14:45)
--- NOTE | 2016-03-13 14:51 | Diagnostic Imaging Report ---
INDICATION: Followup left hip fracture. DISCUSSION: Fluoroscopic support was provided during intraoperative open reduction and internal fixation of the proximal left femur with an intramedullary mak and dynamic compression screw. Please see the operative report for full detail. Fluoroscopy time: 68 seconds. IMPRESSION: 1. Intraoperative ORIF of the proximal left femur. Dictated by: Dictated on workstation # [id number]
--- NOTE | 2016-03-13 15:24 | Physical Therapy Progress Note ---
Therapy Progress Note Patient is in recovery at this time. Per family, Dr. king, PT will begin in a.m. Patient will be WBAT left LE. PT to begin 03/13/15. DANGELO ALATORRE PT Mar 13, 2016 15:24
[2016-03-13] MEDS: ONDANSETRON 4 MG/2 ML (SDV) Z0FRAN IV PRN (15:52)
[2016-03-14] VITALS (9 sets, daily range): BP systolic 95–150; BP diastolic 60–83
[2016-03-14] MEDS ORDERED: ceFAZolin 2 GM IV (SDC ONLY) 50 ML ONE (06:07)
[2016-03-14 06:21] LABS: MEAN PLATELET VOLUME 10.7 FL (7.4-10.4); RED BLOOD COUNT 2.72 10^6/uL (4.35-5.85); RED CELL DISTRIBUTION WIDTH 12.6 % (10.0-14.5); WHITE BLOOD COUNT 7.7 10^3/uL (4.3-11.0)
[2016-03-14] MEDS: ceFAZolin INJECTION 2,000 MG in NS (IVPB) 50 ML IV SCH (06:29)
--- NOTE | 2016-03-14 06:30 | Progress Note (SOAP) ---
Subjective Subjective/Events-last exam No complaints, hip feels better. Objective Exam Vital Signs Date Time Temp Pulse Resp B/P Pulse Ox O2 Delivery O2 Flow Rate FiO2 03/14/16 04:00 100.4 88 16 131/60 94 Room Air 03/14/16 00:00 99.7 90 16 122/63 99 Nasal Cannula 2.00 2.00 03/13/16 19:50 99.5 90 20 119/72 98 Nasal Cannula 2.00 03/13/16 17:15 97.9 81 22 168/81 99 Nasal Cannula 2.00 03/13/16 16:34 Nasal Cannula 2.00 03/13/16 16:25 99.7 03/13/16 15:50 99.7 03/13/16 15:40 96.6 55 24 193/85 97 Nasal Cannula 2.00 03/13/16 12:15 99.7 89 18 168/82 95 Room Air 03/13/16 07:30 97.8 86 18 148/76 97 Room Air I & O 03/14/16 06:59 Intake Total 805 ml Output Total 750 ml Balance 55 ml Capillary Refill : Less Than 3 SecondsLess Than 3 Seconds General Appearance: No Apparent Distress Respiratory: No Accessory Muscle Use No Respiratory Distress Cardiovascular: Regular Rate, Rhythm Gastrointestinal: soft Extremity: Normal Capillary Refill Other (Dressing dry, calf soft) Neurologic/Psychiatric: Alert No Motor/Sensory Deficits Other (somewhat confused) Skin: Normal Color Results Lab Laboratory Tests 03/14/16 05:30: Assessment/Plan Assessment/Plan Assess & Plan/Chief Complaint Left IT hip fracture Pubic Rami Fractures Dementia Plan: mobilize today, to [facility] [place] at some point Arrange transport will see about getting ortho follow up DVT Prophylaxis will be ASA, due to dementia, poor candidate for stronger anticoagulation, spinal anesthesia, ect will proceed with ASA at this time. Diagnosis/Problems: Clinical Quality Measures DVT/VTE Risk/Contraindication: Risk Factor Score Per Nursin RFS Level Per Nursing on Admit: 4+=Very High JIE ANGUIANO MD Mar 14, 2016 06:29
[2016-03-14] MEDS: fentaNYL INJECTION 100 MCG/2 ML AMP IVP PRN (06:40)
[2016-03-14 06:53] LABS: ALANINE AMINOTRANSFERASE 17 U/L (0-55); ALBUMIN 2.9 G/DL (3.2-4.5); ANION GAP 7 MMOL/L (5-14); ASPARTATE AMINO TRANSFERASE 22 U/L (5-34); BILIRUBIN,TOTAL 0.5 MG/DL (0.1-1.0); BLOOD UREA NITROGEN 21 MG/DL (7-18); BUN/CREATININE RATIO 30; CALCIUM 8.6 MG/DL (8.5-10.1); CARBON DIOXIDE 22 MMOL/L (21-32); CHLORIDE 107 MMOL/L (98-107); CREATININE SERUM 0.71 MG/DL (0.60-1.30); GFR ESTIMATED > 60; GLUCOSE 109 MG/DL (70-105); POTASSIUM 4.2 MMOL/L (3.6-5.0); SODIUM 136 MMOL/L (135-145); TOTAL PROTEIN 5.2 G/DL (6.4-8.2)
[2016-03-14] MEDS ORDERED: ENOXAPARIN 40 MG/0.4 ML (LOVENOX) SYR SC SCH (08:00)
[2016-03-14] MEDS ORDERED: NS IV 500 ML 500 ML IV SCH (08:42)
[2016-03-14] MEDS ORDERED: diphenhydrAMINE 50 MG/ML INJ (BENADRYL) IVP PRN ×2 (08:45→13:45)
--- NOTE | 2016-03-14 08:50 | Progress Note (SOAP) ---
Subjective Subjective/Events-last exam PT IS AN 85 Y/O FEMALE WHO IS KNOWN TO ME FROM CLINIC. SHE IS POST-OP LEFT HIP FRACTURE REPAIR - SHE HAS INFERIOR AND SUPERIOR PUBIC RAMI FRACTURES. PER STAFF, SHE HAS NOT HAD ANY URINE OUTPUT SINCE DISCONTINUATION OF HER GONZALEZ CATHETER THIS MORNING. SHE ALSO HAD A BAD NIGHT WITH CONFUSION ALL NIGHT. Review of Systems General: No Chills, Fatigue HEENT: No Head Aches Pulmonary: No Dyspnea Cardiovascular: No: Chest Pain Gastrointestinal: No: Diarrhea, Nausea Neurological: : Confusion (INTERMITTENT): Weakness Objective Exam Vital Signs Date Time Temp Pulse Resp B/P Pulse Ox O2 Delivery O2 Flow Rate FiO2 03/14/16 04:00 100.4 88 16 131/60 94 Room Air 03/14/16 00:00 99.7 90 16 122/63 99 Nasal Cannula 2.00 2.00 03/13/16 19:50 99.5 90 20 119/72 98 Nasal Cannula 2.00 03/13/16 17:15 97.9 81 22 168/81 99 Nasal Cannula 2.00 03/13/16 16:34 Nasal Cannula 2.00 03/13/16 16:25 99.7 03/13/16 15:50 99.7 03/13/16 15:40 96.6 55 24 193/85 97 Nasal Cannula 2.00 03/13/16 12:15 99.7 89 18 168/82 95 Room Air I & O 03/14/16 06:59 Intake Total 805 ml Output Total 750 ml Balance 55 ml Capillary Refill : Less Than 3 SecondsLess Than 3 Seconds General Appearance: No Apparent Distress WD/WN HEENT: PERRL/EOMI Pharynx Normal Neck: Full Range of Motion Supple Respiratory: Chest Non Tender Lungs Clear Normal Breath Sounds Cardiovascular: Regular Rate, Rhythm Systolic Murmur Gastrointestinal: normal bowel sounds non tender soft no organomegaly no pulsatile mass Extremity: No Pedal Edema Other (DRESSIGN IN PLACE ON LEFT HIP) Neurologic/Psychiatric: Alert No Motor/Sensory Deficits Normal Mood/Affect Other (ORIENTED TO PERSON) Lymphatic: No Adenopathy Results Lab Laboratory Tests 03/14/16 05:30: Alanine Aminotransferase (ALT/SGPT) 17, Albumin 2.9L, Alkaline Phosphatase 52, Anion Gap 7, Aspartate Amino Transf (AST/SGOT) 22, BUN/Creatinine Ratio 30, Blood Urea Nitrogen 21H, Calcium Level 8.6, Carbon Dioxide Level 22, Chloride Level 107, Creatinine 0.71, Estimat Glomerular Filtration Rate > 60, Glucose Level 109H, Hematocrit 24L, Hemoglobin 7.7#L, Mean Corpuscular Hemoglobin 28, Mean Corpuscular Hemoglobin Concent 32, Mean Corpuscular Volume 89, Mean Platelet Volume 10.7H, Platelet Count 155, Potassium Level 4.2, Red Blood Count 2.72L, Red Cell Distribution Width 12.6, Sodium Level 136, Total Bilirubin 0.5, Total Protein 5.2L, White Blood Count 7.7 Assessment/Plan Assessment/Plan Assess & Plan/Chief Complaint COMMINUTED INTRA-ARTICULAR FRACTURE OF LEFT FEMUR FRACTURE OF LEFT SUPERIOR PUBIC RAMI FRACTURE OF LEFT INFERIOR PUBIC RAMI PAIN FROM FRACTURE VENTRAL HERNIA PT POST OP DAY #1 HIP FRACTURE REPAIR I HAVE DISCUSSED WITH ACTION INSTALLER - THEY WILL BE CONTACTING [facility] IN [place] FOR PT TO HAVE POST-SURGICAL THERAPIES AT THAT FACILITY TO BE CLOSER TO HER FAMILY. VENTRAL HERNIA - NO SURGICAL INTERVENTION NEEDED AT THIS TIME. ELEVATED WHITE COUNT ON ADMISSION - NOW NORMAL. ANEMIA - POST-OP - TRANSFUSE ONE UNIT TODAY. MILDLY ELEVATED TEMPERATURE - LIKELY DUE TO ATELECTASIS - START INCENTIVE SPIROMETRY TODAY. PER ORTHO - DR. ANGUIANO - HE STATED IN HIS NOTE THAT HE DID NOT WANT TO USE MORE AGGRESSIVE ANTICOAGULATION/ANTI-PLATELET THERAPY BEYOND ASPIRIN DUE TO FALL RISK AND USE OF SPINAL ANESTHESIA - THEREFORE, I WILL DC HER LOVENOX TODAY. Diagnosis/Problems: Clinical Quality Measures DVT/VTE Risk/Contraindication: Risk Factor Score Per Nursin RFS Level Per Nursing on Admit: 4+=Very High MITCHELL JOSE MD Mar 14, 2016 08:50
[2016-03-14] MEDS ORDERED: FUROSEMIDE 40 MG/4 ML INJ (LASIX) IVP NR (08:52)
--- NOTE | 2016-03-14 09:48 | Diagnostic Imaging Report ---
INDICATION: Fracture. COMPARISON: 03/02/2016. FINDINGS: There has been open reduction and internal fixation of the left femoral neck fracture with an intramedullary mak and compression screws. The lesser trochanter remains slightly displaced. The overall alignment is otherwise normal. There are also fractures of the left obturator ring. IMPRESSION: Stable postsurgical changes in the left femoral neck. Mildly comminuted fractures of the left obturator ring as well as a persistent displaced fracture of the lesser trochanter. Dictated by: Dictated on workstation # [id number]
--- NOTE | 2016-03-14 10:44 | Physician Query-Anemia ---
Physician Query-Anemia Query to Physician: Provider's Document Request-Please contact director nicu listed on document for more information. Dear Provider, In cases where a patient has anemia and blood loss, the hat brim curler can never assume a cause and effect relationship. Please document the type of the anemia, if known, on this form as an addendum: *Please exercise your independent, professional judgement when responding. A specific answer is not anticipated or expected. Based on a review/Patient has: Hgb/Hct: 12.0 dropping to 7.7 Estimated blood loss (mL): 250 Transfusion: Yes Type of anemia, if known: Anemia due to: acute blood loss (POST-OPERATIVE DOCUMENTED IN MY NOTE) If you have questions please contact: Trust Operations Assistant:Angy Cornejo CCS,CCDS Ext:[phone] Thank you for your time and cooperation. Clinical Sprayer Leather/Trust Operations Assistant This is a permanent part of the medical record ANGY CORNEJO Mar 14, 2016 10:44 MITCHELL JOSE MD Mar 15, 2016 09:27
--- NOTE | 2016-03-14 10:50 | Anesthesia-Regional Post-Op ---
Regional Patient Condition Mental Status: Alert, Oriented x3 Circulation: Same as Pre-Op Headache: Absent Sensation: Full Recovery Motor Block: Absent Post Op Complications Complications None Follow Up Care/Instructions Patient Instructions None needed. Anesthesia/Patient Condition Patient is doing well, no complaints, stable vital signs, no apparent adverse anesthesia problems. No complications reported per nursing. ANDRZEJ NGUYEN CRNA Mar 14, 2016 10:50
--- NOTE | 2016-03-14 11:00 | Physical Therapy Evaluation ---
PT Evaluation-General Medical Diagnosis Admission Date Mar 12, 2016 at 16:47 Medical Diagnosis: left hip and pelvis fx Onset Date: Mar 13, 2016 Therapy Diagnosis Therapy Diagnosis: weakness; abn gait Height/Weight Height (Feet): 5 Height (Inches): 7.00 Weight (Pounds): 121 Weight (Ounces): 8.0 Precautions Precautions/Isolations: Fall Prevention Weight Bear Status Weight Bearing Restriction: Weight Bearing/Tolerated Location Restriction: L LE Referral Physician: Elda Reason for Referral: Evaluation/Treatment Medical History Pertinent Medical History: Arthritis, Dementia Additional Medical History TIA, chronic back pain, recent SBO with surgery. Current History Pt was sweeping her front porch, fell and sustained left hip and pelvic fracture. Reviewed History: Yes Social History Home: Single Level Current Living Status: Alone Entry Into Home: Stairs With Railing PT Steps Into Home: 3 Prior/Core FIM Prior Level of Function Functional [place] Measure 0=Not Assessed/NA 4=Minimal Assistance 1=Total Assistance 5=Supervision or Setup 2=Maximal Assistance 6=Modified [place] 3=Moderate Assistance 7=Complete [place] Bed Mobility: 7 Transfers (B,C,W/C) (FIM): 6 Gait: 6 Pt reports she has a FWW but doesnt always use it. Reports she cares for herself at home without asssit, but does note that someone gets her groceries. It is unclear if she is still driving--she contradicted herself a few times. PT Evaluation-Current Subjective "I;m so weak". "I couldn't even get myself out of bed at home." "you will have to move me, I can't do it." Pain Numeric Pain Scale: 5-Moderate Pain Location: Left Location Body Site: Hip Comment: FLACC scale used ; pt had received pain meds prior to treatment per nursing Pt/Family Goals Pt unable to verbalize goals at this time. Objective Patient Orientation: Person, Confused Problem Solving: Fair Attachments: IV ROM/Strength ROM Lower Extremities WFL; resistant to moving left LE Strenght Lower Extremities Unable to fully assess, pt with limited ability to follow cues at this time. Integumentary/Posture Integumentary Intact Bowel Incontinence: No Bladder Incontinence: No Posture Rounded shoulders. Pt stood with max assist, unable to fully assess upright posture. Neuromuscular (Tone, Coordination, Reflexes) Intact and functional Sensory Vision: Wears Glasses Hearing: Functional Hand Dominance: Right Sensation Right Lower Extremit: Intact Sensation Left Lower Extremity: Intact Transfers Functional [place] Measure 0=Not Assessed/NA 4=Minimal Assistance 1=Total Assistance 5=Supervision or Setup 2=Maximal Assistance 6=Modified [place] 3=Moderate Assistance 7=Complete [place] Transfers (B, C, W/C) (FIM): 2 Scootin Rollin Supine to/from Sit: 2 Sit to/from Stand: 2 (max assist with SPT with limited WB throught both feet) bed t/f WC(FIM only if WC use): 2 (on/off commode) Pt able to weight bear through the right LE but limited through the left; unable to fully stand at this time. Gait Mode of Locomotion: Walk Anticipated Mode of Locomotion: Walk Comments/Gait Description Not assessed this visit; max assist with SPT. Balance Sitting Static: Fair Treatment Transferred on/off commode with max assist; sat several minutes to urinate but unable to do so. Pt in bed post treatment with SCD's in place and needs met. Assessment/Needs Pt presents post fall with IM nail to repair intertrochanteric femur fracture. She will benefit from skilled PT services to address functional mobility and progress transfers and gait as able. She is a bit confused, but cooperative and pleasant. She toggles back and forth between knowing where she is and not knowing. She also isn't clear on her PLOF. Pt able to follow cues and participate with therapy services. Rehab Potential: Good PT Prison Goals Prison Goals PT Rubber Molder Goals Time Frame: Mar 21, 2016 Transfers (B,C,W/C) (FIM): 4 Gait (FIM): 4 Gait Assistive Device: FWW PT Plan Problem List Problem List: Activity Tolerance, Functional Strength, Safety, Balance, Gait, Transfer, Bed Mobility Treatment/Plan Treatment Plan: Continue Plan of Care Treatment Plan: Bed Mobility, Education, Functional Activity [place], Functional Strength, Gait, Safety, Therapeutic Exercise, Transfers Treatment Duration: Mar 21, 2016 # of days/week 5-6 Visits Per Week: 11 Pt/Family Agrees w/Plan: Yes Safety Risks/Education Patient Education: Transfer Techniques, Safety Issues Teaching Recipient: Patient Teaching Methods: Discussion Response to Teaching: Reinforcement Needed Discharge Recommendations Plan Progress functional mobility and attempt to sit up in chair this afternoon. Time/GCodes Time In: 1010 Time Out: 1040 Total Billed Treatment Time: 30 Total Billed Treatment visit EVMod 15 FA 15 PAVEL ESPANA PT Mar 14, 2016 11:00
[2016-03-14] MEDS: NS IV 1000 ML 1,000 ML IV SCH ×2 (12:26→14:43)
--- NOTE | 2016-03-14 12:40 | OPERATIVE REPORT ---
PROCEDURE PHYSICIAN: JIE ANGUIANO DATE OF PROCEDURE: PREOPERATIVE DIAGNOSIS: Left closed intertrochanteric hip fracture. POSTOPERATIVE DIAGNOSIS: Left closed intertrochanteric hip fracture. PROCEDURE PERFORMED: Left hip intramedullary nailing with a [employer] long trochanteric femoral nail 360 x 12 x 95 mm helical blade and 2 distal locking screws. SURGEON: Elda BARREL ENDSHAKE ADJUSTER: LUDMILA Garcia. Role of visitor services assistant: Aid in implantation, instrumentation and wound closure. ANESTHESIA: Spinal ESTIMATED BLOOD LOSS: 250 mL. IV FLUIDS: Please see anesthesia record. ANTIBIOTICS: Ancef. COMPLICATIONS: None. INDICATIONS FOR THE PROCEDURE: Ms. Solis is an 85-year-old female fell at home yesterday sustaining the above fracture. Risks and benefits were discussed and she has elected to proceed operatively. DESCRIPTION OF PROCEDURE: The patient was taken to the preoperative holding area and brought back to the operative suite. After adequate induction of spinal anesthetic she was placed on the fracture table. The well leg was placed in a well leg bowman. The left leg was placed in traction boot. Reduction with adduction internal rotation and traction was performed. Fracture was reduced adequately, sterile prep and draped, small incision made at the tip of trochanter. Starting awl was utilized and then the guidewire was passed. 12 mm reamer was passed down the canal and then a 360 mm TFN nail was passed without difficulty into the canal. It was placed into a satisfactory position relative to the femoral head and neck. 130 mm guide was then utilized. Stab incision was made and a 130 millimeter guide was placed in the lateral femoral cortex and guidepin was placed into a central central position of the femoral head. The lateral cortex was broached, guidepin was measured and 9 inch 5 mm helical blade was put into position in the center of the femoral head. The setscrew was locked in the top of the nail, out rigor was removed. Distal locking screws were then placed through free hand technique through a small stab incisions in the distal femur. Once they were assured, to be in adequate position. Wounds were all closed in layers. The patient transferred to the recovery room in stable condition having tolerated the procedure well. Job ID: [id number] Dictated Date: 03/13/2016 14:36:44 Critical Care Physician Date: 03/14/2016 12:30:17 / [email or web address]
--- NOTE | 2016-03-14 13:22 | Occupational Therapy Eval ---
OT Evaluation-General/PLF Medical Diagnosis Admission Date Mar 12, 2016 at 16:47 Medical Diagnosis: left hip and pelvis fx Onset Date: Mar 13, 2016 Therapy Diagnosis Therapy Diagnosis: decreased self care, weakness, decreased functional mobility Height/Weight Height (Feet): 5 Height (Inches): 7.00 Weight (Pounds): 121 Weight (Ounces): 8.0 Precautions Precautions/Isolations: Fall Prevention, Standard Precautions Safety Interventions: Bed Exit Alarm Weight Bear Status Weight Bearing Restriction: Weight Bearing/Tolerated Location Restriction: L LE Referral Physician: Edla Referral Reason: Evaluation/Treatment Medical History Pertinent Medical History: Arthritis, Dementia Additional Medical History Decreased vision L eye per pt report, chronic back pain (pt reported fall in September), hernia repair, bowel surgery 2015, TIA (pt reported mini stroke) Current History Pt reported she had been sweeping her front porch and was struggling to get her front door open when she fell. She fx L femur and pelvis and had IM nail surgery on 03-13-16. Reviewed History: Yes Social History Home: Single Level Current Living Status: Alone Entry Into Home: Stairs With Railing Steps Into Home: 3 ADL-Prior Level of Function ADL PLOF Comments Pt reported that she has been able to international accounting manager her basic self care needs, do laundry, simple cooking. She has a friend from [place] who shops for her and cleans. She said that the last time she drove was last week. 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 Pt reported leg pain 6-8/10 but only when she has a muscle spasm. Appearance Alert, cooperative but kept eyes shut most of the time. Recognized OT from [place] Mental Status/Objective Patient Orientation: Person, Place, Time (very close on date), Situation Attachments: IV, Telemetry Current Glasses/Contacts: Yes Hand Dominance: Right Upper Extremity ROM Grossly WFL bilat. Arthritic changes in hands Upper Extremity Strength Grossly 3+/5 bilat. Edema: Some edema R hand. Significant bruising L hand but not edematous or painful ADL-Treatment ADL-Current Pt required max assist toilet transfer today (see PT evaluation) Functional [place] Measure 0=Not Assessed/NA 4=Minimal Assistance 1=Total Assistance 5=Supervision or Setup 2=Maximal Assistance 6=Modified [place] 3=Moderate Assistance 7=Complete IndependenceIRFPAI Quality Coding Scale 6 Independent with activity with or without an assistive device 5 Patient requires set up or clean up by helper. Patient completes activity by themselves 4 Supervision or touching assist (CGA). [place] provide cues , steadying assist 3 The helper provides less than half the effort to complete the activity 2 The helper provides more than half the effort to complete the activity 1 Dependent. The helper does all the effort to complete an activity 7 Patient refused to complete or attempt activity 9 The patient did not perform the activity before the current illness or injury 88 Not attempted due to Medical conditions or safety concerns Education OT Patient Education: Progress toward Goal/Update tx plan (eval results), Purpose of tx/functional activities, Rehab process Teaching Recipient: Patient Teaching Methods: Discussion Response to Teaching: Verbalize Understanding OT Usp Goals Usp Goals Time Frame: 1 week Eating (FIM): 5 Grooming(FIM): 5 Bathing(FIM): 3 Upper Body Dressing(FIM): 5 Lower Body Dressing(FIM): 3 Toileting(FIM): 3 Toilet/Commode Transfer(FIM): 3 Shower Transfer(FIM): 3 Additional Goals: 2-Verbalize Understanding, 3-ImproveStrength/[place] 1=Demonstrate adherence to instructed precautions during ADL tasks. 2=Patient will verbalize/demonstrate understanding of assistive devices/ modifications for ADL. 3=Patient will improve strength/tolerance for activity to enable patient to perform ADL's. OT Education/Plan Problem List/Assessment Assessment: Decreased Safety Aware, Decreased UE Strength, Dependent Transfers , Impaired Bed Mobility, Impaired Cognition (per hx), Impaired Funct Balance, Impaired Self-Care Skills Pt would benefit from skilled OT to increase her independence in basic self care to decrease caregiver burden and allow her to safely return to her home or to least restrictive environment Discharge Recommendations Plan/Recommendations: Continue POC Treatment Plan/Plan of Care Treatment,Training & Education: Yes Patient would benefit from OT for education, treatment and training to promote independence in ADL's, mobility, safety and/or upper extremity function for ADL' s. Plan of Care: ADL Retraining, Functional Mobility, UE Funct Exercise/Act, UE Neuromus Re-Ed/Coord Treatment Duration: Mar 21, 2016 # of days/week 5 Visits Per Week: 5 Agreement: Yes Rehab Potential: Good Time/GCodes Start Time: 10:38 Stop Time: 10:57 Total Time Billed (hr/min): 19 Billed Treatment Time visit, 19 minutes evaluation moderate DIANNE ELLISON OT Mar 14, 2016 13:22
--- NOTE | 2016-03-14 15:31 | Physical Therapy Daily Note ---
PT Daily Note-Current Subjective Pt agreeable to PT and to sit up in the chair--but with much encouragement to do so. Mental Status Patient Orientation: Person, Confused Transfers Functional [place] Measure 0=Not Assessed/NA 4=Minimal Assistance 1=Total Assistance 5=Supervision or Setup 2=Maximal Assistance 6=Modified [place] 3=Moderate Assistance 7=Complete IndependenceIRFPAI Quality Coding Scale 6 Independent with activity with or without an assistive device 5 Patient requires set up or clean up by helper. Patient completes activity by themselves 4 Supervision or touching assist (CGA). [place] provide cues , steadying assist 3 The helper provides less than half the effort to complete the activity 2 The helper provides more than half the effort to complete the activity 1 Dependent. The helper does all the effort to complete an activity 7 Patient refused to complete or attempt activity 9 The patient did not perform the activity before the current illness or injury 88 Not attempted due to Medical conditions or safety concerns Pt transferred sup to sit with mod assist of 2. Sat EOB x 5 min with SB-CGA. Attempted sit to stand x 2 with FWW with max of 2 assist; pt unable to come to full weight bear and difficulty with hip extension and upright posture; tends to be slightly retropulsive and apprehensive about weightbearing B. Performed SPT with max assist without AD to commode. Allowed her to sit several minutes on commode with SBA as she was trying to urinate. She was unable to do so. SPT to chair with max assist to eat her meal. Pt up in chair post treatment with needs met and meal in front of her. Weight Bearing Weight Bearing Restriction: Weight Bearing/Tolerated Assessment Current Status: Fair Progress Pt is pleasant. She is slightly confused. At times conversation is clear and other times she is confused. Cooperative. Unable to urinate on commode this visit. PT Gamb Cutter Goals Gamb Cutter Goals PT Longterm Goals Time Frame: Mar 21, 2016 Transfers (B,C,W/C) (FIM): 4 Gait (FIM): 4 Gait Assistive Device: FWW PT Plan Problem List Problem List: Activity Tolerance, Functional Strength, Safety, Gait, Transfer Treatment/Plan Treatment Plan: Continue Plan of Care Treatment Plan: Bed Mobility, Education, Functional Activity Calder[place], Functional Strength, Gait, Safety, Therapeutic Exercise, Transfers Treatment Duration: Mar 21, 2016 Visits Per Week: 11 Safety Risks/Education Patient Education: Safety Issues Teaching Recipient: Patient Teaching Methods: Discussion Response to Teaching: Reinforcement Needed Time/GCodes Time In: 1430 Time Out: 1500 Total Billed Treatment Time: 30 Total Billed Treatment visit FA 30 PAVEL ESPANA PT Mar 14, 2016 15:31
[2016-03-14] MEDS: ACETAMINOPHEN 325 MG TABLET/CAPLET (TYLENOL) PO PRN (16:09)
[2016-03-14] MEDS ORDERED: FUROSEMIDE 40 MG/4 ML INJ (LASIX) ONE (18:37)
[2016-03-14] MEDS: BETHANECHOL 25 MG (URECHOLINE) TAB PO SCH (20:43)
[2016-03-14] MEDS ORDERED: BETHANECHOL 25 MG (URECHOLINE) TAB PO ONE (21:00)
[2016-03-15] VITALS (9 sets, daily range): BP systolic 136–189; BP diastolic 64–90
[2016-03-15] MEDS: NS IV 1000 ML 1,000 ML IV SCH ×2 (05:12→20:47)
[2016-03-15 06:11] LABS: MEAN PLATELET VOLUME 10.2 FL (7.4-10.4); RED BLOOD COUNT 2.82 10^6/uL (4.35-5.85); RED CELL DISTRIBUTION WIDTH 12.9 % (10.0-14.5); WHITE BLOOD COUNT 8.1 10^3/uL (4.3-11.0)
[2016-03-15 06:34] LABS: ANION GAP 8 MMOL/L (5-14); BLOOD UREA NITROGEN 19 MG/DL (7-18); BUN/CREATININE RATIO 29; CALCIUM 8.2 MG/DL (8.5-10.1); CARBON DIOXIDE 20 MMOL/L (21-32); CHLORIDE 109 MMOL/L (98-107); CREATININE SERUM 0.66 MG/DL (0.60-1.30); GFR ESTIMATED > 60; GLUCOSE 99 MG/DL (70-105); POTASSIUM 3.4 MMOL/L (3.6-5.0); SODIUM 137 MMOL/L (135-145)
--- NOTE | 2016-03-15 07:18 | Progress Note (SOAP) ---
Subjective Subjective/Events-last exam POD #2, s/p Left Hip TFN S/P Left intertrochanteric femur fracture and left superior and inferior pubic rami fractures alert and oriented x 3 Review of Systems General: No Chills Pulmonary: No Cough Musculoskeletal: No: leg pain Neurological: No: Numbness Objective Exam Vital Signs Date Time Temp Pulse Resp B/P Pulse Ox O2 Delivery O2 Flow Rate FiO2 03/15/16 04:00 99.5 85 20 152/70 91 Room Air 03/15/16 00:00 99.2 97 17 138/74 95 Room Air 03/14/16 20:20 95 Room Air 03/14/16 20:00 99.1 97 19 150/76 95 Room Air 03/14/16 18:45 99.0 88 18 139/78 95 Room Air 03/14/16 16:39 100.6 97 18 138/76 94 Room Air 03/14/16 16:25 100.7 101 16 132/83 96 Room Air 03/14/16 16:25 100.7 94 20 132/83 94 Room Air 03/14/16 13:19 Room Air 03/14/16 12:00 100.5 99 18 121/72 92 Room Air 03/14/16 09:00 Room Air 03/14/16 08:00 99.1 64 20 95/60 93 Room Air 03/14/16 07:55 99.1 94 20 95/60 93 Room Air I & O 03/15/16 07:00 Intake Total 1650 ml Output Total 1500 ml Balance 150 ml Capillary Refill : Less Than 3 SecondsLess Than 3 Seconds General Appearance: No Apparent Distress HEENT: PERRL/EOMI Respiratory: No Accessory Muscle Use No Respiratory Distress Cardiovascular: Normal Peripheral Pulses Gastrointestinal: soft Extremity: Normal Range of Motion Non Tender No Calf Tenderness Neurologic/Psychiatric: Alert Oriented x3 No Motor/Sensory Deficits Normal 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 She was able to recall that she had walked twice with PT the day before, but then she asked to eat her cookie, when in fact she was eating eggs. ) Skin: Normal Color Warm/Dry Other (Dressing CDI) Lymphatic: No Adenopathy Results Lab Laboratory Tests 03/15/16 05:50: Anion Gap 8, BUN/Creatinine Ratio 29, Blood Urea Nitrogen 19H, Calcium Level 8.2L, Carbon Dioxide Level 20L, Chloride Level 109H, Creatinine 0.66, Estimat Glomerular Filtration Rate > 60, Glucose Level 99, Hematocrit 25L, Hemoglobin 8.1L, Mean Corpuscular Hemoglobin 29, Mean Corpuscular Hemoglobin Concent 33, Mean Corpuscular Volume 87, Mean Platelet Volume 10.2, Platelet Count 142, Potassium Level 3.4L, Red Blood Count 2.82L, Red Cell Distribution Width 12.9, Sodium Level 137, White Blood Count 8.1 Microbiology 03/12/16 MRSA Screen - Final, Complete MRSA not isolated Assessment/Plan Assessment/Plan Assess & Plan/Chief Complaint left intertrochanteric femur fracture left superior and inferior pubic rami fracture s/p left hip TFN acute blood loss anemia, post-operative monitor hemoglobin Diagnosis/Problems: Clinical Quality Measures DVT/VTE Risk/Contraindication: Risk Factor Score Per Nursin RFS Level Per Nursing on Admit: 4+=Very High CLAUDIA LANGSTON Mar 15, 2016 07:18
[2016-03-15] MEDS: BETHANECHOL 25 MG (URECHOLINE) TAB PO SCH ×3 (07:38→20:47)
--- NOTE | 2016-03-15 08:41 | Progress Note (SOAP) ---
Subjective Subjective/Events-last exam PT IS AN 85 Y/O FEMALE WHO IS KNOWN TO ME FROM CLINIC. 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 SHE STATES THAT "NONE OF THE GIRLS ON THE BUS HAVE BEEN HELPFUL, EVEN WHEN I AM YELLING MY HEAD OFF FOR HELP." SHE THEN ASKED ME HOW I GOT HERE, IF I RODE THE TRANSIT BUS LIKE SHE DID. WHEN I REORIENTED HER, SHE WAS LUCID FOR A SHORT TIME, REMEMBERED THAT SHE FELL AND BROKE HER LEFT HIP AND "ANOTHER BONE IN MY PELVIS". Review of Systems General: Fatigue Malaise HEENT: No Head Aches Pulmonary: No Dyspnea, No Cough Cardiovascular: No: Chest Pain Gastrointestinal: No: Abdominal Pain, Nausea Genitourinary: No Dysuria Musculoskeletal: : leg pain Neurological: : Confusion: Weakness Objective Exam Vital Signs Date Time Temp Pulse Resp B/P Pulse Ox O2 Delivery O2 Flow Rate FiO2 03/15/16 08:00 Room Air 03/15/16 04:00 99.5 85 20 152/70 91 Room Air 03/15/16 00:00 99.2 97 17 138/74 95 Room Air 03/14/16 20:20 95 Room Air 03/14/16 20:00 99.1 97 19 150/76 95 Room Air 03/14/16 18:45 99.0 88 18 139/78 95 Room Air 03/14/16 16:39 100.6 97 18 138/76 94 Room Air 03/14/16 16:25 100.7 101 16 132/83 96 Room Air 03/14/16 16:25 100.7 94 20 132/83 94 Room Air 03/14/16 13:19 Room Air 03/14/16 12:00 100.5 99 18 121/72 92 Room Air 03/14/16 09:00 Room Air I & O 03/15/16 07:00 Intake Total 1650 ml Output Total 1500 ml Balance 150 ml Capillary Refill : Less Than 3 SecondsLess Than 3 Seconds General Appearance: WD/WN Mild Distress (DUE TO CONFUSION) HEENT: Pharynx Normal Neck: Full Range of Motion Supple Respiratory: Chest Non Tender Lungs Clear Normal Breath Sounds No Accessory Muscle Use No Respiratory Distress Cardiovascular: Regular Rate, Rhythm Systolic Murmur Gastrointestinal: normal bowel sounds non tender soft no organomegaly no pulsatile mass Extremity: No Pedal Edema Neurologic/Psychiatric: Alert Other (DELIRIOUS - WITH INTERMITTENT RAPID ALTERNATION IN CONFUSION VERSUS AWARENESS OF SURROUNDINGS) Skin: Warm/Dry Other (LEFT HIP SURGICAL DRESSING INTACT) Lymphatic: No Adenopathy Results Lab Laboratory Tests 03/15/16 05:50: Anion Gap 8, BUN/Creatinine Ratio 29, Blood Urea Nitrogen 19H, Calcium Level 8.2L, Carbon Dioxide Level 20L, Chloride Level 109H, Creatinine 0.66, Estimat Glomerular Filtration Rate > 60, Glucose Level 99, Hematocrit 25L, Hemoglobin 8.1L, Mean Corpuscular Hemoglobin 29, Mean Corpuscular Hemoglobin Concent 33, Mean Corpuscular Volume 87, Mean Platelet Volume 10.2, Platelet Count 142, Potassium Level 3.4L, Red Blood Count 2.82L, Red Cell Distribution Width 12.9, Sodium Level 137, White Blood Count 8.1 Microbiology 03/12/16 MRSA Screen - Final, Complete MRSA not isolated Assessment/Plan Assessment/Plan Assess & Plan/Chief Complaint COMMINUTED INTRA-ARTICULAR FRACTURE OF LEFT FEMUR FRACTURE OF LEFT SUPERIOR PUBIC RAMI FRACTURE OF LEFT INFERIOR PUBIC RAMI PAIN FROM FRACTURE VENTRAL HERNIA PT POST OP DAY #1 HIP FRACTURE REPAIR I HAVE DISCUSSED WITH LIQUOR TESTER - THEY WILL BE CONTACTING [facility] IN [place] FOR PT TO HAVE POST-SURGICAL THERAPIES AT THAT FACILITY TO BE CLOSER TO HER FAMILY. VENTRAL HERNIA - NO SURGICAL INTERVENTION NEEDED AT THIS TIME. ELEVATED WHITE COUNT ON ADMISSION - NOW NORMAL. ANEMIA - POST-OP - TRANSFUSE AGAIN TODAY- ANOTHER ONE UNIT. CHECK LABS TOMORROW MILDLY ELEVATED TEMPERATURE - RESOLVED HYPOKALEMIA - MILD - GIVE POTASSIUM TODAY. SIGNIFICANT CONFUSION - LIKELY DUE TO PAIN MEDICATION, TRAMADOL, AND AGE LEADING TO DELIRIUM - STOP TRAMADOL, STOP MORPHINE, KEEP FENTANYL FOR SEVERE PAIN, START ON TYLENOL AND IBUPROFEN, ALTERNATE EVERY 4 HOURS AND SCHEDULE THE MEDICATION. MONITOR SYMPTOMS, MONITOR PAIN. PER ORTHO - DR. ANGUIANO - HE STATED IN HIS NOTE THAT HE DID NOT WANT TO USE MORE AGGRESSIVE ANTICOAGULATION/ANTI-PLATELET THERAPY BEYOND ASPIRIN DUE TO FALL RISK AND USE OF SPINAL ANESTHESIA - THEREFORE, LOVENOX WAS STOPPED. Diagnosis/Problems: Clinical Quality Measures DVT/VTE Risk/Contraindication: Risk Factor Score Per Nursin RFS Level Per Nursing on Admit: 4+=Very High MITCHELL JOSE MD Mar 15, 2016 08:40
[2016-03-15] MEDS ORDERED: NS IV 500 ML 500 ML IV SCH (08:58)
[2016-03-15] MEDS ORDERED: FUROSEMIDE 40 MG/4 ML INJ (LASIX) IVP SCH (09:00)
[2016-03-15] MEDS ORDERED: ACETAMINOPHEN 500 MG TAB (TYLENOL) PO SCH (09:00)
[2016-03-15] MEDS ORDERED: KCL 20 MEQ TAB (K-DUR) PO NR (09:08)
[2016-03-15] MEDS: IBUPROFEN TABLET 200 MG TAB PO SCH ×3 (13:00→21:21)
--- NOTE | 2016-03-15 13:36 | Physical Therapy Daily Note ---
PT Daily Note-Current Subjective Pt is supine in bed upon arrival. Pt appears very confused and nursing confirmed that is how she has been. Pt agreed to transfer to recliner so nursing could remove catheter. Pain Comment: Unable to assess due to pt's confused nature. Mental Status Patient Orientation: Person, Confused Attachments: Turner Catheter, IV Transfers Functional [place] Measure 0=Not Assessed/NA 4=Minimal Assistance 1=Total Assistance 5=Supervision or Setup 2=Maximal Assistance 6=Modified [place] 3=Moderate Assistance 7=Complete IndependenceIRFPAI Quality Coding Scale 6 Independent with activity with or without an assistive device 5 Patient requires set up or clean up by helper. Patient completes activity by themselves 4 Supervision or touching assist (CGA). Etters provide cues , steadying assist 3 The helper provides less than half the effort to complete the activity 2 The helper provides more than half the effort to complete the activity 1 Dependent. The helper does all the effort to complete an activity 7 Patient refused to complete or attempt activity 9 The patient did not perform the activity before the current illness or injury 88 Not attempted due to Medical conditions or safety concerns Transfers (B, C, W/C) (FIM): 3 Scootin Rollin Supine to/from Sit: 3 Sit to/from Stand: 3 Bed to/from Chair: 2 Weight Bearing Weight Bearing Restriction: Weight Bearing/Tolerated Location Restriction: L LE Gait Training Gait (FIM): 1 Distance (FIM): 1=up to 49 ft Distance: 10' Gait Level of Assist: 2 Gait Persons Needed: 2 Gait Assistive Device: FWW Pt is very confused and gets nervous while ambulating. Pt doesn't think she can transfer or ambulate to recliner but she is physically capable of it if she believes it. Treatments Pt rolls to R side to remove pillows from L hip. Pt then sits up from supine with Mod A due to lack of strength. Pt isn't able to scoot to EOB and bring legs off bed without Mod A. Pt transfers to standing using FWW at Mod-Max A of 2. Pt needs assistance advancing BLE due to fear. Pt ambulates very slowly and with Mod A. Pt transfers to recliner with VC given for hand placement and sequencing. Nursing is notified so catheter can be removed. Pt is left with nursing and all needs met at end of tx. Assessment Current Status: Poor Progress Pt is very confused and very fearful during tx. Even with reassurance, pt requires Mod-Max A for transfers and mobility. PT Chief Business Officer Goals Mcfp Goals PT Mcfp Goals Time Frame: Mar 21, 2016 Transfers (B,C,W/C) (FIM): 4 Gait (FIM): 4 Gait Assistive Device: FWW PT Plan Problem List Problem List: Activity Tolerance, Functional Strength, Safety, Balance, Gait, Transfer, Bed Mobility Treatment/Plan Treatment Plan: Continue Plan of Care Treatment Plan: Bed Mobility, Education, Functional Activity [place], Functional Strength, Gait, Safety, Therapeutic Exercise, Transfers Treatment Duration: Mar 21, 2016 Visits Per Week: 11 Safety Risks/Education Patient Education: Gait Training, Transfer Techniques, Correct Positioning, Safety Issues Teaching Recipient: Patient Teaching Methods: Discussion Response to Teaching: Verbalize Understanding Time/GCodes Time In: 1050 Time Out: 1115 Total Billed Treatment Time: 25 Total Billed Treatment visit, FA X2 (25m) SHEYLA ZAVALA PTA Mar 15, 2016 13:36
--- NOTE | 2016-03-15 14:45 | Physical Therapy Daily Note ---
PT Daily Note-Current Subjective Pt was sitting in recliner visiting with family upon arrival. Pt agreed to seated EX for tx this afternoon. Pain Numeric Pain Scale: 0-No Pain Location: No Pain Reported Mental Status Patient Orientation: Person, Confused Attachments: IV Transfers Functional [place] Measure 0=Not Assessed/NA 4=Minimal Assistance 1=Total Assistance 5=Supervision or Setup 2=Maximal Assistance 6=Modified [place] 3=Moderate Assistance 7=Complete IndependenceIRFPAI Quality Coding Scale 6 Independent with activity with or without an assistive device 5 Patient requires set up or clean up by helper. Patient completes activity by themselves 4 Supervision or touching assist (CGA). [place] provide cues , steadying assist 3 The helper provides less than half the effort to complete the activity 2 The helper provides more than half the effort to complete the activity 1 Dependent. The helper does all the effort to complete an activity 7 Patient refused to complete or attempt activity 9 The patient did not perform the activity before the current illness or injury 88 Not attempted due to Medical conditions or safety concerns Scootin Exercises Seated Therapy Exercises: Ankle pumps, Long arc quads, Hip flexion, Kicking activity Seated Reps: 20 Treatments Pt agreed to seated EX in recliner for tx. Pt is still very confused and requires both Verbal and Physical cues to complete EX. Pt talks to things and about things that aren't there during tx. Nursing was advised. Pt has difficulty remembering where she is as well as what time of day it is and if she has eaten or not. After EX, pt was left with all needs met. Assessment Current Status: Poor Progress Pt has difficulty staying on task as well as being oriented to her situation. PT Half-Way Goals Implementation Manager Goals PT Implementation Manager Goals Time Frame: Mar 21, 2016 Transfers (B,C,W/C) (FIM): 4 Gait (FIM): 4 Gait Assistive Device: FWW PT Plan Problem List Problem List: Activity Tolerance, Functional Strength, Safety, Balance, Gait, Transfer, Bed Mobility Treatment/Plan Treatment Plan: Continue Plan of Care Treatment Plan: Bed Mobility, Education, Functional Activity [place], Functional Strength, Gait, Safety, Therapeutic Exercise, Transfers Treatment Duration: Mar 21, 2016 Visits Per Week: 11 Safety Risks/Education Patient Education: Correct Positioning, Safety Issues Teaching Recipient: Patient Teaching Methods: Discussion Response to Teaching: Verbalize Understanding Time/GCodes Time In: 1345 Time Out: 1400 Total Billed Treatment Time: 15 Total Billed Treatment visit, EX (15m) SHEYLA ZAVALA FOUNTAIN SUPERVISOR Mar 15, 2016 14:45
[2016-03-15] MEDS ORDERED: POLYETHYLENE GLYCOL 17 GM (MIRALAX) PACK PO NR (16:45)
--- NOTE | 2016-03-15 17:15 | Occupational Ther Daily Note ---
OT Current Status-Daily Note Subjective Pt seen in room, up in recliner, recognized OT. "Terese Danielson, come on in. You can go to the head of the line. You don't need to wait." Appearance Alert, cooperative, confused Mental Status/Objective Functional [place] Measure 0=Not Assessed/NA 4=Minimal Assistance 1=Total Assistance 5=Supervision or Setup 2=Maximal Assistance 6=Modified [place] 3=Moderate Assistance 7=Complete [place] Other Treatment Pt did 10 reps bilat UE exercise to help strengthen arms to help with transfers , no additional weights used. Pt was not able to track repetitions for most of the exercises and needed some skilled cues to continue to do them correctly. pt left up in recliner, all needs met. Education OT Patient Education: Exercise program, Purpose of tx/functional activities Teaching Recipient: Patient Teaching Methods: Demonstration, Discussion Response to Teaching: Reinforcement Needed OT Short Term Goals Short Term Goals 1=Demonstrate adherence to instructed precautions during ADL tasks. 2=Patient will verbalize/demonstrate understanding of assistive devices/ modifications for ADL. 3=Patient will improve strength/tolerance for activity to enable patient to perform ADL's. OT Systems Testing Laboratory Technician Goals Senior Living Goals Time Frame: 1 week Eating (FIM): 5 Grooming(FIM): 5 Bathing(FIM): 3 Upper Body Dressing(FIM): 5 Lower Body Dressing(FIM): 3 Toileting(FIM): 3 Toilet/Commode Transfer(FIM): 3 Shower Transfer(FIM): 3 Additional Goals: 2-Verbalize Understanding, 3-ImproveStrength/[place] 1=Demonstrate adherence to instructed precautions during ADL tasks. 2=Patient will verbalize/demonstrate understanding of assistive devices/ modifications for ADL. 3=Patient will improve strength/tolerance for activity to enable patient to perform ADL's. OT Education/Plan Problem List/Assessment Pt would benefit from skilled OT to increase her independence in basic self care to decrease caregiver burden and allow her to safely return to her home or to least restrictive environment Discharge Recommendations Plan/Recommendations: Continue POC Treatment Plan/Plan of Care Patient would benefit from OT for education, treatment and training to promote independence in ADL's, mobility, safety and/or upper extremity function for ADL' s. Plan of Care: ADL Retraining, Functional Mobility, UE Funct Exercise/Act, UE Neuromus Re-Ed/Coord Treatment Duration: Mar 21, 2016 Visits Per Week: 5 Agreement: Yes Rehab Potential: Good Time/GCodes Start Time: 16:20 Stop Time: 16:35 Total Time Billed (hr/min): 15 Billed Treatment Time visit, 15 minutes exercise TERESE ELLISON OT Mar 15, 2016 17:15
[2016-03-15] MEDS: SENNA W/DOCUSATE (SENOKOT S) TABLET PO SCH (20:47)
[2016-03-15] MEDS: ACETAMINOPHEN 500 MG TAB (TYLENOL) PO SCH (21:21)
[2016-03-16] VITALS: BP 172/81
[2016-03-16] MEDS: fentaNYL INJECTION 100 MCG/2 ML AMP IVP PRN (02:09)
--- NOTE | 2016-03-16 05:41 | Progress Note (SOAP) ---
Subjective Subjective/Events-last exam POD #3, s/p left TFN VSS, afebrile Review of Systems Pulmonary: No Cough Musculoskeletal: No: leg pain Neurological: : Confusion Objective Exam Vital Signs Date Time Temp Pulse Resp B/P Pulse Ox O2 Delivery O2 Flow Rate FiO2 03/16/16 00:00 98.3 86 20 172/81 96 Room Air 03/15/16 21:10 99.2 100 24 176/81 97 Room Air 03/15/16 20:45 95 Room Air 03/15/16 17:00 99.2 100 20 145/84 98 Room Air 03/15/16 13:41 99.1 97 18 189/88 97 Room Air 03/15/16 12:30 98.9 90 18 158/90 96 Room Air 03/15/16 11:49 99.1 92 16 136/64 92 Room Air 03/15/16 11:35 97.7 100 18 161/74 91 Room Air 03/15/16 08:00 Room Air 03/15/16 08:00 98.6 103 20 149/70 94 Room Air I & O 03/16/16 07:00 Intake Total 2570 ml Output Total 750 ml Balance 1820 ml Capillary Refill : Less Than 3 SecondsLess Than 3 Seconds General Appearance: No Apparent Distress Neurologic/Psychiatric: Alert Oriented x3 No Motor/Sensory Deficits Normal 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 Norm as Tested Skin: Normal Color Warm/Dry Other (dressing CDI) Results Lab Laboratory Tests 03/15/16 05:50: Anion Gap 8, BUN/Creatinine Ratio 29, Blood Urea Nitrogen 19H, Calcium Level 8.2L, Carbon Dioxide Level 20L, Chloride Level 109H, Creatinine 0.66, Estimat Glomerular Filtration Rate > 60, Glucose Level 99, Hematocrit 25L, Hemoglobin 8.1L, Mean Corpuscular Hemoglobin 29, Mean Corpuscular Hemoglobin Concent 33, Mean Corpuscular Volume 87, Mean Platelet Volume 10.2, Platelet Count 142, Potassium Level 3.4L, Red Blood Count 2.82L, Red Cell Distribution Width 12.9, Sodium Level 137, White Blood Count 8.1 03/15/16 11:00: Lab Scanned Report Transfusion Reaction Form Microbiology 03/12/16 MRSA Screen - Final, Complete MRSA not isolated Assessment/Plan Assessment/Plan Assess & Plan/Chief Complaint left intertrochanteric femur fracture left superior and inferior pubic rami fracture s/p left hip TFN acute blood loss anemia, post-operative monitor hemoglobin awaiting dc plan stable from ortho stance Diagnosis/Problems: Clinical Quality Measures DVT/VTE Risk/Contraindication: Risk Factor Score Per Nursin RFS Level Per Nursing on Admit: 4+=Very High CLAUDIA LANGSTON Mar 16, 2016 05:41
[2016-03-16] MEDS: IBUPROFEN TABLET 200 MG TAB PO SCH ×3 (06:00→21:06)
[2016-03-16] MEDS: ACETAMINOPHEN 500 MG TAB (TYLENOL) PO SCH ×3 (06:00→21:06)
[2016-03-16 06:33] LABS: MEAN PLATELET VOLUME 10.5 FL (7.4-10.4); RED BLOOD COUNT 2.98 10^6/uL (4.35-5.85); WHITE BLOOD COUNT 7.9 10^3/uL (4.3-11.0)
[2016-03-16 06:55] LABS: ANION GAP 6 MMOL/L (5-14); BLOOD UREA NITROGEN 17 MG/DL (7-18); BUN/CREATININE RATIO 27; CALCIUM 8.3 MG/DL (8.5-10.1); CARBON DIOXIDE 22 MMOL/L (21-32); CHLORIDE 111 MMOL/L (98-107); CREATININE SERUM 0.62 MG/DL (0.60-1.30); GFR ESTIMATED > 60; GLUCOSE 97 MG/DL (70-105); POTASSIUM 3.6 MMOL/L (3.6-5.0); SODIUM 139 MMOL/L (135-145)
[2016-03-16] MEDS: BETHANECHOL 25 MG (URECHOLINE) TAB PO SCH ×3 (07:59→21:06)
[2016-03-16] MEDS: SENNA W/DOCUSATE (SENOKOT S) TABLET PO SCH ×2 (07:59→21:06)
[2016-03-16 08:00] VITALS: BP 132/67
--- NOTE | 2016-03-16 09:10 | Physical Therapy Daily Note ---
PT Daily Note-Current Subjective Patient is very confused with family present. Pain Numeric Pain Scale: 5-Moderate Pain Location: Left Location Body Site: Hip Pain Description: Acute Comment: FLACC Mental Status Patient Orientation: Confused Attachments: IV Transfers Functional [place] Measure 0=Not Assessed/NA 4=Minimal Assistance 1=Total Assistance 5=Supervision or Setup 2=Maximal Assistance 6=Modified [place] 3=Moderate Assistance 7=Complete IndependenceIRFPAI Quality Coding Scale 6 Independent with activity with or without an assistive device 5 Patient requires set up or clean up by helper. Patient completes activity by themselves 4 Supervision or touching assist (CGA). [place] provide cues , steadying assist 3 The helper provides less than half the effort to complete the activity 2 The helper provides more than half the effort to complete the activity 1 Dependent. The helper does all the effort to complete an activity 7 Patient refused to complete or attempt activity 9 The patient did not perform the activity before the current illness or injury 88 Not attempted due to Medical conditions or safety concerns Transfers (B, C, W/C) (FIM): 1 Scootin Supine to/from Sit: 1 Sit to/from Stand: 1 Bed to/from Chair: 1 Patient is unable to perform tasks due to inability to follow simple direction and weakness. Patient is dependent assist with all mobility and is unable to comply with TTWB left LE. Exercises Supine Ex: Ankle pumps, Heel Slides, Hip abd/add Supine Reps: 10 (AAROM to decrease pain and improve mobility) Assessment Patient tolerates minimal activity due to confusion and resisting all movement. Patient will benefit from NH placement to ensure safe recovery. PT Roofing Machine Tender Goals Roofing Machine Tender Goals PT Roofing Machine Tender Goals Time Frame: Mar 21, 2016 Transfers (B,C,W/C) (FIM): 4 Gait (FIM): 4 Gait Assistive Device: FWW PT Plan Treatment/Plan Treatment Plan: Continue Plan of Care Treatment Plan: Bed Mobility, Education, Functional Activity Calderon, Functional Strength, Gait, Safety, Therapeutic Exercise, Transfers Treatment Duration: Mar 21, 2016 Visits Per Week: 11 Time/GCodes Time In: 841 Time Out: 904 Total Billed Treatment Time: 23 Total Billed Treatment 1 visit EX 10 min FA 13 min G Codes Necessary: DANGELO Ty PT Mar 16, 2016 09:10
[2016-03-16] MEDS: NS IV 1000 ML 1,000 ML IV SCH (10:04)
--- NOTE | 2016-03-16 10:50 | Progress Note (SOAP) ---
Subjective Subjective/Events-last exam PT IS AN 85 Y/O FEMALE WHO IS WELL KNOWN TO ME FROM CLINIC. TODAY SHE STATES THAT SHE IS FEELING "MUCH BETTER", SHE FEELS MUCH MORE CLEAR FAR COGNITION IS CONCERNED. HER NURSE NOTES THAT SHE HAS HAD TO BE STRAIGHT CATHETERIZED 2-3 TIMES OVER THE DAY YESTERDAY Review of Systems General: Fatigue HEENT: No Head Aches Pulmonary: No Dyspnea, No Cough Cardiovascular: No: Chest Pain, Orthopnea Gastrointestinal: No: Abdominal Pain, Nausea Genitourinary: Retention Musculoskeletal: : leg pain Neurological: : Confusion (IMPROVED): Weakness Objective Exam Vital Signs Date Time Temp Pulse Resp B/P Pulse Ox O2 Delivery O2 Flow Rate FiO2 03/16/16 08:04 Room Air 03/16/16 08:00 97.5 82 16 132/67 96 Room Air 03/16/16 00:00 98.3 86 20 172/81 96 Room Air 03/15/16 21:10 99.2 100 24 176/81 97 Room Air 03/15/16 20:45 95 Room Air 03/15/16 17:00 99.2 100 20 145/84 98 Room Air 03/15/16 13:41 99.1 97 18 189/88 97 Room Air 03/15/16 12:30 98.9 90 18 158/90 96 Room Air 03/15/16 11:49 99.1 92 16 136/64 92 Room Air 03/15/16 11:35 97.7 100 18 161/74 91 Room Air I & O 03/16/16 07:00 Intake Total 2670 ml Output Total 1850 ml Balance 820 ml Capillary Refill : Less Than 3 SecondsLess Than 3 Seconds General Appearance: No Apparent Distress WD/WN HEENT: PERRL/EOMI Pharynx Normal Neck: Supple Respiratory: Chest Non Tender Lungs Clear Normal Breath Sounds Cardiovascular: Regular Rate, Rhythm Gastrointestinal: normal bowel sounds non tender soft no organomegaly no pulsatile mass Extremity: Normal Capillary Refill No Pedal Edema Neurologic/Psychiatric: Alert Oriented x3 No Motor/Sensory Deficits Normal Mood/Affect Skin: Warm/Dry Lymphatic: No Adenopathy Results Lab Laboratory Tests 03/15/16 11:00: Lab Scanned Report Transfusion Reaction Form 03/16/16 05:22: Anion Gap 6, BUN/Creatinine Ratio 27, Blood Urea Nitrogen 17, Calcium Level 8.3L , Carbon Dioxide Level 22, Chloride Level 111H, Creatinine 0.62, Estimat Glomerular Filtration Rate > 60, Glucose Level 97, Hematocrit 26L, Hemoglobin 8.9L, Mean Corpuscular Hemoglobin 30, Mean Corpuscular Hemoglobin Concent 34, Mean Corpuscular Volume 87, Mean Platelet Volume 10.5H, Platelet Count 153, Potassium Level 3.6, Red Blood Count 2.98L, Red Cell Distribution Width 13.0, Sodium Level 139, White Blood Count 7.9 Microbiology 03/12/16 MRSA Screen - Final, Complete MRSA not isolated Assessment/Plan Assessment/Plan Assess & Plan/Chief Complaint COMMINUTED INTRA-ARTICULAR FRACTURE OF LEFT FEMUR FRACTURE OF LEFT SUPERIOR PUBIC RAMI FRACTURE OF LEFT INFERIOR PUBIC RAMI PAIN FROM FRACTURE VENTRAL HERNIA PT POST OP DAY #1 HIP FRACTURE REPAIR I HAVE DISCUSSED WITH TALENT MANAGER - THE FAMILY WANTS HER TO BE AT [facility] IN [place] - HOWEVER THAT FACILITY DOES NOT ACCEPT HER HUMANA GOLD AT FULL PAYMENT - THE FAMILY IS WORKING WITH THE FACILITY TO SEE IF THEY WILL TAKE HER HUMANA FULL PAYMENT. WE WILL BE WAITING TO TRANSFER HER UNTIL SATURDAY DUE TO THE LENGTH OF TIME IT IS TAKING TO GET THE FACILITY AND FAMILY TO MAKE A CHOICE ON HER FUTURE FACILITY. DR. ANGUIANO WILL LIKELY BE SIGNING OFF AND I WILL TAKE OVER PRIMARY ON THIS PATIENT HER HIP IS FIXED AND PT IS IMPROVING. VENTRAL HERNIA - NO SURGICAL INTERVENTION NEEDED AT THIS TIME. ELEVATED WHITE COUNT ON ADMISSION - NOW NORMAL. ANEMIA - POST-OP DUE TO INTRAOPERATIVE BLOOD LOSS - IMPROVED POST TRANSFUSIONS - MONITOR LABS. MILDLY ELEVATED TEMPERATURE - RESOLVED. HYPOKALEMIA - MILD - IMPROVED WITH POTASSIUM REPLACEMENT. SIGNIFICANT CONFUSION IMPROVED TREMENDOUSLY- CONFUSION WAS LIKELY DUE TO PAIN MEDICATION, TRAMADOL, AND AGE LEADING TO DELIRIUM - STOPPED TRAMADOL, STOPPED MORPHINE, KEPT FENTANYL FOR SEVERE PAIN, STARTED ON TYLENOL AND IBUPROFEN, ALTERNATE EVERY 4 HOURS AND SCHEDULE THE MEDICATION. MONITOR SYMPTOMS, MONITOR PAIN. PER ORTHO - DR. ANGUIANO - HE STATED IN HIS NOTE THAT HE DID NOT WANT TO USE MORE AGGRESSIVE ANTICOAGULATION/ANTI-PLATELET THERAPY BEYOND ASPIRIN DUE TO FALL RISK AND USE OF SPINAL ANESTHESIA - THEREFORE, LOVENOX WAS STOPPED. Diagnosis/Problems: Clinical Quality Measures DVT/VTE Risk/Contraindication: Risk Factor Score Per Nursin RFS Level Per Nursing on Admit: 4+=Very High MITCHELL JOSE MD Mar 16, 2016 10:50
--- NOTE | 2016-03-16 14:26 | Physical Therapy Daily Note ---
PT Daily Note-Current Subjective Patient is on commode and very confused. EXPERIMENTAL AIRCRAFT MECHANIC present. Pain Numeric Pain Scale: 0-No Pain Mental Status Patient Orientation: Confused Attachments: IV Transfers Functional [place] Measure 0=Not Assessed/NA 4=Minimal Assistance 1=Total Assistance 5=Supervision or Setup 2=Maximal Assistance 6=Modified [place] 3=Moderate Assistance 7=Complete IndependenceIRFPAI Quality Coding Scale 6 Independent with activity with or without an assistive device 5 Patient requires set up or clean up by helper. Patient completes activity by themselves 4 Supervision or touching assist (CGA). [place] provide cues , steadying assist 3 The helper provides less than half the effort to complete the activity 2 The helper provides more than half the effort to complete the activity 1 Dependent. The helper does all the effort to complete an activity 7 Patient refused to complete or attempt activity 9 The patient did not perform the activity before the current illness or injury 88 Not attempted due to Medical conditions or safety concerns Transfers (B, C, W/C) (FIM): 1 Scootin Supine to/from Sit: 1 Sit to/from Stand: 1 Bed to/from Chair: 1 dependent assist with all mobility due to confusion and inability to follow simple direction. Patient if very resistive with all movement. Patient repositioned supine in bed with 4 rails up and bed alarm activated. PT Child Custody Evaluator Goals Residential Goals PT Residential Goals Time Frame: Mar 21, 2016 Transfers (B,C,W/C) (FIM): 4 Gait (FIM): 4 Gait Assistive Device: FWW PT Plan Treatment/Plan Treatment Plan: Continue Plan of Care Treatment Plan: Bed Mobility, Education, Functional Activity Calderon, Functional Strength, Gait, Safety, Therapeutic Exercise, Transfers Treatment Duration: Mar 21, 2016 Visits Per Week: 11 Time/GCodes Time In: 1400 Time Out: 1410 Total Billed Treatment Time: 10 Total Billed Treatment 1 visit FA 10 min DANGELO ALATORRE PT Mar 16, 2016 14:26
[2016-03-16] MEDS: ACETAMINOPHEN 325 MG TABLET/CAPLET (TYLENOL) PO PRN (14:48)
[2016-03-16 16:00] VITALS: BP 164/77
--- NOTE | 2016-03-16 17:24 | Occ Therapy Progress Note ---
Therapy Progress Note 1500 Pt's daughter asked to please let patient sleep. Agreed to their wishes. DIANNE ELLISON OT Mar 16, 2016 17:24
[2016-03-17] VITALS: BP 120/74
[2016-03-17] MEDS: NS IV 1000 ML 1,000 ML IV SCH ×2 (01:47→15:04)
[2016-03-17] MEDS: IBUPROFEN TABLET 200 MG TAB PO SCH ×3 (06:49→21:53)
[2016-03-17] MEDS: ACETAMINOPHEN 500 MG TAB (TYLENOL) PO SCH ×3 (06:49→21:53)
[2016-03-17 08:00] VITALS: BP 157/80
[2016-03-17] MEDS: BETHANECHOL 25 MG (URECHOLINE) TAB PO SCH ×4 (08:27→20:21)
[2016-03-17] MEDS: SENNA W/DOCUSATE (SENOKOT S) TABLET PO SCH ×2 (08:27→20:21)
--- NOTE | 2016-03-17 12:06 | Physical Therapy Daily Note ---
PT Daily Note-Current Subjective Pt up in chair, agreeable. Mildly confused but cooperative. Denied pain. Mental Status Patient Orientation: Person, Confused, Situation Attachments: IV Transfers Functional [place] Measure 0=Not Assessed/NA 4=Minimal Assistance 1=Total Assistance 5=Supervision or Setup 2=Maximal Assistance 6=Modified [place] 3=Moderate Assistance 7=Complete IndependenceIRFPAI Quality Coding Scale 6 Independent with activity with or without an assistive device 5 Patient requires set up or clean up by helper. Patient completes activity by themselves 4 Supervision or touching assist (CGA). [place] provide cues , steadying assist 3 The helper provides less than half the effort to complete the activity 2 The helper provides more than half the effort to complete the activity 1 Dependent. The helper does all the effort to complete an activity 7 Patient refused to complete or attempt activity 9 The patient did not perform the activity before the current illness or injury 88 Not attempted due to Medical conditions or safety concerns Supine to/from Sit: 4 Weight Bearing Weight Bearing Restriction: Weight Bearing/Tolerated Location Restriction: L LE Gait Training Gait (FIM): 0 Distance (FIM): 0=does not occure Exercises Seated Therapy Exercises: Ankle pumps, Long arc quads, Glut set Seated Reps: 20 Treatments Sit<->stand and static standing with VCS for posture, decreased retropulsion. Lateral WS. Seated LE ex. Returned to chair with needs met, family present. Assessment Current Status: Fair Progress Pt tolerated well. Pt initially very retropulsive with standing, slowly corrected with skilled VCS and tactile cues. Pt unable to sequence and initiate steps forward or back. PT Grades 1 Through 6 Teacher Goals Grades 1 Through 6 Teacher Goals PT Grades 1 Through 6 Teacher Goals Time Frame: Mar 21, 2016 Transfers (B,C,W/C) (FIM): 4 Gait (FIM): 4 Gait Assistive Device: FWW PT Plan Problem List Problem List: Activity Tolerance, Functional Strength, Safety, Balance, Gait, Transfer, Bed Mobility Treatment/Plan Treatment Plan: Continue Plan of Care Treatment Plan: Bed Mobility, Education, Functional Activity Calderon, Functional Strength, Gait, Safety, Therapeutic Exercise, Transfers Treatment Duration: Mar 21, 2016 Visits Per Week: 11 Pt/Family Agrees w/Plan: Yes Safety Risks/Education Patient Education: Transfer Techniques Teaching Recipient: Patient Teaching Methods: Discussion Response to Teaching: Reinforcement Needed Discharge Recommendations Therapy D/C Recommendations: Fpc (TCU/NH) Barriers to Progress confusion Time/GCodes Time In: 1131 Time Out: 1159 Total Billed Treatment Time: 28 Total Billed Treatment 1, FA x 18', Ex x 10' G Codes Necessary: DYLAN Newton DPT Mar 17, 2016 12:05
[2016-03-17] MEDS ORDERED: MILK OF MAGNESIA 400 MG/5 ML 30 ML UDC PO ONE (12:45)
[2016-03-17] MEDS ORDERED: MILK OF MAGNESIA 400 MG/5 ML 30 ML UDC PO PRN (12:45)
--- NOTE | 2016-03-17 12:45 | Progress Note (SOAP) ---
Subjective Subjective/Events-last exam Fwup Left Hip Fx--S/P ORIF, Left Pelvic Fracture, Post-op Anemia, Post-op Urinary retention, confusion. C/O constipation. Still some confusion. Still having to be straight cathed. Objective Exam Vital Signs Date Time Temp Pulse Resp B/P Pulse Ox O2 Delivery O2 Flow Rate FiO2 03/17/16 08:00 98.9 67 16 157/80 95 Room Air 03/17/16 08:00 Room Air 03/17/16 00:00 99.8 85 20 120/74 96 Room Air 03/16/16 20:00 Room Air 03/16/16 16:00 100.4 92 24 164/77 97 Room Air I & O 03/17/16 07:00 Intake Total 2930 ml Output Total 700 ml Balance 2230 ml Capillary Refill : Less Than 3 SecondsLess Than 3 Seconds General Appearance: No Apparent Distress Respiratory: Lungs Clear Cardiovascular: Regular Rate, Rhythm Gastrointestinal: normal bowel sounds non tender soft distended Extremity: Non Tender No Calf Tenderness No Pedal Edema Neurologic/Psychiatric: Alert Skin: Other (left hip with dressing in place) Results Lab Microbiology 03/12/16 MRSA Screen - Final, Complete MRSA not isolated Assessment/Plan Assessment/Plan Assess & Plan/Chief Complaint 1. Left Hip Fx--S/P ORIF--awaiting NH placement in --hopefully Saturday, continue PT/OT 2. Left Pelvic Fx--continue PT/OT, pain well controlled 3. Post-op Anemia--repeat CBC in AM 4. Post-op urinary retention--increase urecholine dose to QID 5. Constipation--MOM now, patient drinking prune juice, add miralax 6. Confusion--improving but still with mild at times Diagnosis/Problems: Clinical Quality Measures DVT/VTE Risk/Contraindication: Risk Factor Score Per Nursin RFS Level Per Nursing on Admit: 4+=Very High JAKE BEARD DO Mar 17, 2016 12:45 pm
[2016-03-17] MEDS: ONDANSETRON 4 MG/2 ML (SDV) Z0FRAN IV PRN (15:04)
[2016-03-17 16:36] VITALS: BP 167/79
[2016-03-17] MEDS: POLYETHYLENE GLYCOL 17 GM (MIRALAX) PACK PO SCH (20:20)
[2016-03-17] MEDS: ACETAMINOPHEN 325 MG TABLET/CAPLET (TYLENOL) PO PRN (23:58)
[2016-03-18] VITALS: BP 177/79
[2016-03-18] MEDS: NS IV 1000 ML 1,000 ML IV SCH (04:30)
[2016-03-18 05:15] LABS: BASOPHILS % (AUTO) 0 % (0-10); EOSINOPHILS # (AUTO) 0.5 10^3/uL (0.0-0.3); EOSINOPHILS % (AUTO) 6 % (0-10); LYMPHOCYTES # (AUTO) 0.9 X 10^3 (1.0-4.0); LYMPHOCYTES % (AUTO) 11 % (12-44); MEAN CORPUSCULAR HEMOGLOBIN 30 PG (25-34); MEAN CORPUSCULAR HGB CONC 34 G/DL (32-36); MEAN CORPUSCULAR VOLUME 89 FL (80-99); MEAN PLATELET VOLUME 9.9 FL (7.4-10.4); MONOCYTES # (AUTO) 0.7 X 10^3 (0.0-1.0); MONOCYTES % (AUTO) 8 % (0-12); NEUTROPHILS # (AUTO) 6.2 X 10^3 (1.8-7.8); NEUTROPHILS % (AUTO) 75 % (42-75); PLATELET COUNT 205 10^3/uL (130-400); RED BLOOD COUNT 2.99 10^6/uL (4.35-5.85); RED CELL DISTRIBUTION WIDTH 13.9 % (10.0-14.5); WHITE BLOOD COUNT 8.2 10^3/uL (4.3-11.0)
[2016-03-18] MEDS: IBUPROFEN TABLET 200 MG TAB PO SCH ×3 (06:06→21:10)
[2016-03-18] MEDS: ACETAMINOPHEN 500 MG TAB (TYLENOL) PO SCH ×3 (06:06→21:09)
[2016-03-18] MEDS: SENNA W/DOCUSATE (SENOKOT S) TABLET PO SCH ×2 (08:20→21:00)
[2016-03-18] MEDS: BETHANECHOL 25 MG (URECHOLINE) TAB PO SCH ×4 (08:20→21:10)
[2016-03-18 08:41] VITALS: BP 176/77
--- NOTE | 2016-03-18 09:37 | Physical Therapy Daily Note ---
PT Daily Note-Current Subjective Pt agreeable. Denied pain. Remains mildly confused, slow to follow cues. Incontinent of BM and urine. Mental Status Patient Orientation: Person, Confused, Situation Attachments: SCD's, IV Transfers Functional [place] Measure 0=Not Assessed/NA 4=Minimal Assistance 1=Total Assistance 5=Supervision or Setup 2=Maximal Assistance 6=Modified [place] 3=Moderate Assistance 7=Complete IndependenceIRFPAI Quality Coding Scale 6 Independent with activity with or without an assistive device 5 Patient requires set up or clean up by helper. Patient completes activity by themselves 4 Supervision or touching assist (CGA). [place] provide cues , steadying assist 3 The helper provides less than half the effort to complete the activity 2 The helper provides more than half the effort to complete the activity 1 Dependent. The helper does all the effort to complete an activity 7 Patient refused to complete or attempt activity 9 The patient did not perform the activity before the current illness or injury 88 Not attempted due to Medical conditions or safety concerns Supine to/from Sit: 3 Sit to/from Stand: 3 Bed to/from Chair: 3 Bed->chair TFR with FWW with mod A x 1. Initially very retropulsive with standing and with fatigue. Max skilled VCS and tactile cues to correct. Able to weight bear to slide feet to turn toward chair. When backing up towards chair, Pt was able to sequence small steps with full foot clearance (B) feet. Max, constant VCS to sequence turn. Weight Bearing Weight Bearing Restriction: Weight Bearing/Tolerated Location Restriction: L LE Treatments Transfer training. Pt stood with mod->min A x 1 for dependent ge-care ( additional assist required for this). Pt up in chair with needs met, new gown donned. Nursing notified of Pt position. Assessment Current Status: Fair Progress Pt tolerated well. Mild improvement in sequencing, command following. At times, bearing weight appropriately on (L) LE but frequently very retropulsive. PT Long-Term Goals Composite Laminator Goals PT Long-Term Goals Time Frame: Mar 21, 2016 Transfers (B,C,W/C) (FIM): 4 Gait (FIM): 4 Gait Assistive Device: FWW PT Plan Problem List Problem List: Activity Tolerance, Functional Strength, Safety, Balance, Gait, Transfer, Bed Mobility Treatment/Plan Treatment Plan: Continue Plan of Care Treatment Plan: Bed Mobility, Education, Functional Activity Calder[place], Functional Strength, Gait, Safety, Therapeutic Exercise, Transfers Treatment Duration: Mar 21, 2016 Visits Per Week: 11 Pt/Family Agrees w/Plan: Yes Safety Risks/Education Patient Education: Transfer Techniques Teaching Recipient: Patient Teaching Methods: Discussion Response to Teaching: Reinforcement Needed Discharge Recommendations Therapy D/C Recommendations: Fdc (TCU/NH) Barriers to Progress confusion Time/GCodes Time In: 0900 Time Out: 0930 Total Billed Treatment Time: 30 Total Billed Treatment 1, FA x 30' G Codes Necessary: DYLAN Newton DPT Mar 18, 2016 09:37
--- NOTE | 2016-03-18 11:43 | Progress Note (SOAP) ---
Subjective Subjective/Events-last exam Fwup Left Hip Fx--S/P ORIF, Left Pelvic Fracture, Post-op Anemia, Post-op Urinary retention, confusion. Up on commode this morning having BM. Pulled IV out but eating/drinking well. Objective Exam Vital Signs Date Time Temp Pulse Resp B/P Pulse Ox O2 Delivery O2 Flow Rate FiO2 03/18/16 08:41 99.2 90 16 176/77 97 Room Air 03/18/16 08:00 Room Air 03/18/16 00:00 98.2 87 20 177/79 96 Room Air 03/17/16 20:00 Room Air 03/17/16 16:36 97.0 88 20 167/79 96 Room Air I & O 03/18/16 06:59 Intake Total 2330 ml Output Total 900 ml Balance 1430 ml Capillary Refill : Less Than 3 SecondsLess Than 3 Seconds General Appearance: No Apparent Distress Neck: Supple Respiratory: Lungs Clear Cardiovascular: Systolic Murmur Gallop/S3 Irregularly Irregular Gastrointestinal: normal bowel sounds non tender soft Extremity: Non Tender No Calf Tenderness No Pedal Edema Neurologic/Psychiatric: Alert Skin: Other (left hip dressing in place and dry) Results Lab Laboratory Tests 03/18/16 05:03: Basophils # (Auto) 0.0, Basophils (%) (Auto) 0, Eosinophils # (Auto) 0.5H, Eosinophils (%) (Auto) 6, Hematocrit 27L, Hemoglobin 8.9L, Lymphocytes # (Auto) 0.9L, Lymphocytes (%) (Auto) 11L, Mean Corpuscular Hemoglobin 30, Mean Corpuscular Hemoglobin Concent 34, Mean Corpuscular Volume 89, Mean Platelet Volume 9.9, Monocytes # (Auto) 0.7, Monocytes (%) (Auto) 8, Neutrophils # (Auto ) 6.2, Neutrophils (%) (Auto) 75, Platelet Count 205, Red Blood Count 2.99L, Red Cell Distribution Width 13.9, White Blood Count 8.2 Microbiology 03/12/16 MRSA Screen - Final, Complete MRSA not isolated Assessment/Plan Assessment/Plan Assess & Plan/Chief Complaint 1. Left Hip Fx--S/P ORIF--awaiting NH placement in --hopefully Saturday, continue PT/OT 2. Left Pelvic Fx--continue PT/OT, pain well controlled 3. Post-op Anemia--H/H stable 4. Post-op urinary retention--increased urecholine dose to QID yesterday 5. Constipation--improved 6. Confusion--improving but still with mild at times Diagnosis/Problems: Clinical Quality Measures DVT/VTE Risk/Contraindication: Risk Factor Score Per Nursin RFS Level Per Nursing on Admit: 4+=Very High JAKE BEARD DO Mar 18, 2016 11:43 am
[2016-03-18 16:16] VITALS: BP 158/77
[2016-03-18] MEDS: POLYETHYLENE GLYCOL 17 GM (MIRALAX) PACK PO SCH (21:00)
[2016-03-19] VITALS: BP 145/85
[2016-03-19] MEDS: ACETAMINOPHEN 500 MG TAB (TYLENOL) PO SCH (05:14)
[2016-03-19] MEDS: IBUPROFEN TABLET 200 MG TAB PO SCH (05:14)
[2016-03-19] MEDS: SENNA W/DOCUSATE (SENOKOT S) TABLET PO SCH (08:07)
[2016-03-19 08:15] VITALS: BP 163/84
[2016-03-19] MEDS: BETHANECHOL 25 MG (URECHOLINE) TAB PO SCH (09:03)
--- NOTE | 2016-03-19 09:18 | Discharge Summary ---
Diagnosis/Chief Complaint Date of Admission Mar 12, 2016 at 16:47 Date of Discharge Discharge Date: Mar 19, 2016 Admission Diagnosis Admission Diagnosis Left Closed Intertrochanteric hip fracture Fall Dementia Plan: Left hip IM Nailing, discussed with patient and her daughter, agree to proceed, likely under spinal if possible. Discharge Diagnosis COMMINUTED INTRA-ARTICULAR FRACTURE OF LEFT FEMUR FRACTURE OF LEFT SUPERIOR PUBIC RAMI FRACTURE OF LEFT INFERIOR PUBIC RAMI PAIN FROM FRACTURE VENTRAL HERNIA DELIRIUM GENERALIZED WEAKNESS Reason Hospital Visit PT IS AN 85 Y/O FEMALE WHO IS KNOWN TO ME FROM CLINIC. THE PATIENT PRESENTED TO THE HOSPITAL AFTER FALLING AT HOME WHILE SWEEPING BY HER DOOR. SHE DOES NOT REMEMBER FEELING OFF BALANCE, AND DOES NOT REMEMBER THE DETAILS OF THE FALL. SHE HAD IMMEDIATE PAIN IN HER LEFT HIP AND GLUTEAL REGION, WAS TRANSPORTED TO THE EMERGENCY DEPARTMENT WHERE SHE WAS FOUND TO HAVE A LEFT INTRAARTICULAR HIP FRACTURE AND FRACTURE OF INFERIOR AND SUPERIOR RAMI. DR. ANGUIANO ADMITTED THE PATIENT TO THE HOSPITAL AND PLANS ON SURGICAL FIXATION TODAY AROUND 1PM. THE PATIENT REPORTS THAT ON DISCHARGE SHE WOULD LIKE TO GO TO [place] TO [facility] FOR RECOVERY. Discharge Summary Discharge Physical Examination Allergies: Coded Allergies: MATIANo Known Allergies (Unverified Allergy, Mild, 04/23/09) Vitals & I&Os Vital Signs Date Time Temp Pulse Resp B/P Pulse Ox O2 Delivery O2 Flow Rate FiO2 03/19/16 00:00 98.1 84 18 145/85 96 Room Air 03/14/16 00:00 2.00 2.00 General Appearance: Alert, Oriented X3, Cooperative, No Acute Distress HEENT: Atraumatic, PERRLA Respiratory: Clear to Auscultation Cardiovascular: Regular Rate Abdominal: Normal Bowel Sounds, Soft, Other (VENTRAL HERNIA AT UMBILICUS) Extremities: No Clubbing, No Cyanosis, No Edema Skin: No Rashes, Other (INCISION SITE LEFT HIP C/D/I) Neuro: Normal Speech Psych/Mental Status: Mental Status NL, Mood NL Hospital Course COMMINUTED INTRA-ARTICULAR FRACTURE OF LEFT FEMUR FRACTURE OF LEFT SUPERIOR PUBIC RAMI FRACTURE OF LEFT INFERIOR PUBIC RAMI PAIN FROM FRACTURE VENTRAL HERNIA PT POST OP DAY #1 HIP FRACTURE REPAIR I HAVE DISCUSSED WITH PRODUCTION GRAPHIC DESIGNER - THE FAMILY WANTS HER TO BE AT [facility] IN [place] - HOWEVER THAT FACILITY DOES NOT ACCEPT HER HUMANA GOLD AT FULL PAYMENT - THE FAMILY IS WORKING WITH THE FACILITY TO SEE IF THEY WILL TAKE HER HUMANA FULL PAYMENT. WE WILL BE WAITING TO TRANSFER HER UNTIL SATURDAY DUE TO THE LENGTH OF TIME IT IS TAKING TO GET THE FACILITY AND FAMILY TO MAKE A CHOICE ON HER FUTURE FACILITY. DR. ANGUIANO WILL LIKELY BE SIGNING OFF AND I WILL TAKE OVER PRIMARY ON THIS PATIENT HER HIP IS FIXED AND PT IS IMPROVING. VENTRAL HERNIA - NO SURGICAL INTERVENTION NEEDED AT THIS TIME. ELEVATED WHITE COUNT ON ADMISSION - NOW NORMAL. ANEMIA - POST-OP DUE TO INTRAOPERATIVE BLOOD LOSS - IMPROVED POST TRANSFUSIONS - MONITOR LABS AT FACILITY. MILDLY ELEVATED TEMPERATURE - RESOLVED. HYPOKALEMIA - MILD - IMPROVED WITH POTASSIUM REPLACEMENT. SIGNIFICANT CONFUSION IMPROVED TREMENDOUSLY- CONFUSION WAS LIKELY DUE TO PAIN MEDICATION, TRAMADOL, AND AGE LEADING TO DELIRIUM - STOPPED TRAMADOL, STOPPED MORPHINE, KEPT FENTANYL FOR SEVERE PAIN - PT DID NOT NEED TO UTILIZE, STARTED ON TYLENOL AND IBUPROFEN, ALTERNATE EVERY 4 HOURS AND SCHEDULE THE MEDICATION. MONITOR SYMPTOMS, MONITOR PAIN. PER ORTHO - DR. ANGUIANO - HE STATED IN HIS NOTE THAT HE DID NOT WANT TO USE MORE AGGRESSIVE ANTICOAGULATION/ANTI-PLATELET THERAPY BEYOND ASPIRIN DUE TO FALL RISK AND USE OF SPINAL ANESTHESIA - THEREFORE, LOVENOX WAS STOPPED. DR. ANGUIANO HAS CONTACTED DR. MARIETTA NOYOLA AT [facility] IN [facility] - SHE IS TO DO HER HIP FRACTURE/PELVIC FRACTURE FOLLOW UP WITH DR. NOYOLA SHE WILL NOT BE RETURNING TO [place] FOR THAT NEEDED FOLLOW-UP. PT TO BE DISCHARGED INTO THE CARE OF HER FAMILY FOR TRANSPORT TO A LONG-TERM IN [facility]. Discharge Condition at discharge IMPROVED Instructions to patient/family Please see electonic discharge instructions given to patient. Discharge Medications Reviewed and agree with Discharge Medication list on patient's Discharge Instruction sheet Clinical Quality Measures DVT/VTE Risk/Contraindication: Risk Factor Score Per Nursin RFS Level Per Nursing on Admit: 4+=Very High MITCHELL JOSE MD Mar 19, 2016 09:17
[2016-03-19] MEDS ORDERED: ACET-77 PO (09:19)
[2016-03-19] MEDS ORDERED: POLY17PO23 PO (09:19)
[2016-03-19] MEDS ORDERED: IBUP-2055 PO (09:19)
[2016-03-19] MEDS ORDERED: SENN-20 PO (09:19)
[2016-03-19] MEDS ORDERED: BETH25TA PO (09:19)
--- NOTE | 2016-03-19 09:22 | Discharge Inst-Complex ---
PDI Med Rec & Follow Up Appt. New Medications: Acetaminophen (Acetaminophen) 500 Mg Tablet 1000 MG PO Q8HR #90 TAB Bethanechol Chloride (Bethanechol Chloride) 25 Mg Tablet 25 MG PO QID #120 Ref 2 TAB Ibuprofen (Ibuprofen) 200 Mg Tablet 400 MG PO Q8HR #90 TAB Polyethylene Glycol 3350 (Polyethylene Glycol 3350) 17 Gm Powd.pack 17 GM PO HS #30 EACH Sennosides/Docusate Sodium (Senna-Time S Tablet) 1 Each Tablet 2 EA PO BID #120 TAB Continued Medications: Latanoprost (Latanoprost) 2.5 Ml Drops 1 DROP OU HS Patient Instructions: APPT WITH DR. MARIETTA NOYOLA AT THE [facility] Activity, Diet and PDI Resume Normal Activity: No (START ON PT/OT) Discharge Diet: Regular Diet Drink 6-8 Glasses of Fluid/Day: Yes Driving Instructions: No Driving/Refer to Return to The Hospital For: ANY CONCERN FOR WORSENING ILLNESS, WORSENING CONFUSION, WOUND OPENING, WOUND BLEEDING, REDNESS OF PUSTULAR DRAINAGE OF WOUND Symptoms to Reoprt to DrZhanna: Swelling Increased, Bleeding Excessive, Pain Increased, Fever Over 101 Degrees F, Pain/Pressure in Chest, Diarrhea(Persistant ), Dizziness/Fainting For Problems or Questions: Contact Your Physician, Go to Emergency Room Infection Signs and Symptoms: Increased Redness, Foul Odor of Wound, Skin Itchy or Has a Rash, Temperature Above 101 F MITCHELL JOSE MD Mar 19, 2016 09:22
--- NOTE | 2016-03-19 09:48 | Physical Therapy Daily Note ---
PT Daily Note-Current Subjective Patient is up in recliner and agrees to PT. Pain Numeric Pain Scale: 5-Moderate Pain Location: Left Location Body Site: Hip Pain Description: Ache Mental Status Patient Orientation: Person, Time, Situation Transfers Functional [place] Measure 0=Not Assessed/NA 4=Minimal Assistance 1=Total Assistance 5=Supervision or Setup 2=Maximal Assistance 6=Modified [place] 3=Moderate Assistance 7=Complete IndependenceIRFPAI Quality Coding Scale 6 Independent with activity with or without an assistive device 5 Patient requires set up or clean up by helper. Patient completes activity by themselves 4 Supervision or touching assist (CGA). [place] provide cues , steadying assist 3 The helper provides less than half the effort to complete the activity 2 The helper provides more than half the effort to complete the activity 1 Dependent. The helper does all the effort to complete an activity 7 Patient refused to complete or attempt activity 9 The patient did not perform the activity before the current illness or injury 88 Not attempted due to Medical conditions or safety concerns Transfers (B, C, W/C) (FIM): 3 Scootin Sit to/from Stand: 3 Patient is retropulsive with sit to stand transfers x 3 sets Weight Bearing Weight Bearing Restriction: Weight Bearing/Tolerated Location Restriction: L LE Gait Training Gait (FIM): 2 Distance (FIM): [phone] ft Distance: 50' Gait Level of Assist: 3 Gait Persons Needed: 1 Gait Assistive Device: FWW NBOS; PT assist to advance FWW; flexed knee and hip posture with FWW Exercises Seated Therapy Exercises: Ankle pumps, Long arc quads Seated Reps: 20 bilateral LE exercises to improve functional strength to improve mobility to safely return to maximum LOF. Assessment Per report, patient will transfer to [facility] in [place] for continued care on this date. Patient continues to be limited with functional strength and mobility. PT Mcc Goals Mcc Goals PT Family Preservation Worker Goals Time Frame: Mar 21, 2016 Transfers (B,C,W/C) (FIM): 4 Gait (FIM): 4 Gait Assistive Device: FWW PT Plan Treatment/Plan Treatment Plan: Continue Plan of Care Treatment Plan: Bed Mobility, Education, Functional Activity [place], Functional Strength, Gait, Safety, Therapeutic Exercise, Transfers Treatment Duration: Mar 21, 2016 Visits Per Week: 11 Time/GCodes Time In: 920 Time Out: 943 Total Billed Treatment Time: 23 Total Billed Treatment 1 visit EX 8 min GT 15 min DANGELO ALATORRE PT Mar 19, 2016 09:47
== END 2016-03-19 14:20 | DRG 956 ==
LOC: EDUNIT# 14:40 → ER 14:41 → 4TH 16:47
PROVIDERS: ADMIT Orthopaedic Surgery Orthopaedic Surgery of the Spine; ATTEND Orthopaedic Surgery Orthopaedic Surgery of the Spine
PROC: 0QS706Z Reposition Left Upper Femur with Intramedullary Internal Fixation Device, Open Approach (ICD-10-PCS; principal; 2016-03-13 13:15)
DX: S72.142A Displaced intertrochanteric fracture of left femur, initial encounter for closed fracture (principal); S32.592A Other specified fracture of left pubis, initial encounter for closed fracture; S60.222A Contusion of left hand, initial encounter; J98.11 Atelectasis; D62 Acute posthemorrhagic anemia; K43.9 Ventral hernia without obstruction or gangrene; M54.9 Dorsalgia, unspecified; Z66 Do not resuscitate; M19.91 Primary osteoarthritis, unspecified site; R41.0 Disorientation, unspecified; T40.4X5A Adverse effect of other synthetic narcotics, initial encounter; T40.2X5A Adverse effect of other opioids, initial encounter; R33.9 Retention of urine, unspecified; K59.00 Constipation, unspecified; Z86.73 Personal history of transient ischemic attack (TIA), and cerebral infarction without residual deficits; Z79.82 Long term (current) use of aspirin; Z91.81 History of falling; W18.30XA Fall on same level, unspecified, initial encounter; Y92.008 Other place in unspecified non-institutional (private) residence as the place of occurrence of the external cause; Y93.H9 Activity, other involving exterior property and land maintenance, building and construction; E87.6 Hypokalemia
CPT/HCPCS: 36415; 70450; 71010; 72125; 72170; 73130; 73502; 73552; 80048; 80053; 81000; 85007; 85025; 85027; 85610; 85730; 86850; 86900; 86901; 86920; 87081; 93005; 96374; 96375; 96376